=== PATIENT | female | born 1995 | race Caucasian/White ===

== ENCOUNTER 2021-07-31 04:53 | Emergency (ER) | payer OTHER ==
--- OUTSIDE RECORDS SUMMARY | 2021-07-31 04:55 | XMS REPORT | Continuity of Care Document ---
:1995 Author Organization [facility] t Address [address] [place] [address] Care Team Providers Name Role Phone Esteban Hopson Attending Clinician Unavailable DARNELL Attending Clinician Unavailable Pedro Pedraza Attending Clinician Unavailable Physician, Primary or Family Admitting Clinician UnavailPedro Dang Admitting Clinician Unavailable Payers Payer Name Policy Type Policy Number Effective Date Expiration Date S ource Problems This patient has no known problems. Allergies, Adverse Reactions, Alerts Allergy Allergy Status Severity Reaction(s) Onset Inactive Treating Comm ents Source Name Type Date Date Clinician No Known DA Active U [facility] Allergie 06-25 00:00: [address] Medications This patient has no known medications. Procedures This patient has no known procedures. Encounters Start End Encounter Admission Attending Care Care Encounter Source Date/Time Date/Time Type Type Clinicians Facility Department ID 2021-07-29 2021-07-30 Emergency EM Mark Anthony [facility] [id number] [facility] 21:27:00 00:49:00 , Héctor [id number] [facility] 2021-07-29 2021-07-30 Emergency EM Mark Anthony [facility] [id number] [facility] 21:27:00 00:49:00 , Héctor 37 [facility] 2021-07-21 2021-07-21 Emergency E MICHAEL PATRICK [facility] [address] 06:42:00 10:16:00 [place] 2021-06-25 2021-06-26 Inpatient [facility] [id number] [facility] 09:48:00 16:57:[id number] [facility] 2021-06-25 2021-06-26 Inpatient [facility] [id number] [facility] 09:48:00 16:57:[address] [facility] Results Test Description Test Time Test Comments Results Result Comments Source COMPREHENSIVE METABOLIC PANEL 2021-07-29 22:24:00 Test Item Value Reference Range Interpretation Comme nts SODIUM (test code = NA) 142 MMOL/L 137-145 N POTASSIUM (test code = K) 4.0 MMOL/L 3.5-5.1 N CHLORIDE (test code = CL) 100 MMOL/L 98-107 N CARBON DIOXIDE (test code 23 MMOL/L 22-30 N = CO2) ANION GAP (test code = 23 MMOL/L 14-24 N GAP) GLUCOSE (test code = GLU) 112 MG/DL 74-106 H BLOOD UREA NITROGEN (test 13 MG/DL 7-17 N code = BUN) GLOMERULAR FILTRATION RATE > 60 R eporting units: ml/min/1.73 m2 (test code = GFR) (Modified MDRD Formula)Reference Range: > or = 6 0 ml/min/1.73 m2 CREATININE (test code = 1.00 MG/DL 0.52-1.04 N CREAT) TOTAL PROTEIN (test code = 10.0 G/DL 6.3-8.2 H [facility] has made PROT) us aware of new information regarding the potential i nterference ofEltrombopag (a bone marrow stimulant used to treatthrombocyt onmenia and aplastic anemia) with sp ecific assayson the Vitros 5600 of which Total Protein is one of those assays performed in our lab.Interfe [facility]ce [facility] determined thatEltrombopag does interfere with Vitros Total Pr otein asfollowsEltrom bopag Interference for Vitros Prod uct Total Protein:======= Eltrombopag Max Observed A vg. BiasConcentration Concentration Concentration== = 2.5 mg/dl 6.0 g/dl +0.41 +0.34 3.5 mg/dl 6.0 g/dl +0.50 +0.45 5 mg/d l 6.0 g/dl +0.73 +0.65 2.5 mg/dl 8.0 g/dl +0.44 +0.41 3.5 mg/ dl 8.0 g/dl +0.55 +0.52 5 mg/dl 8.0 g/dl +0.86 +0.77 ALBUMIN (test code = ALB) 5.4 G/DL 3.5-5.0 H CALCIUM (test code = CA) 10.7 MG/DL 8.4-10.2 H BILIRUBIN TOTAL (test code 1.0 MG/DL 0.2-1.3 N E ltrombopag Interference for Vitros = BILT) Product TBil, BuBc: Assay Eltrombopag Analyte/ Max Observed Avg. Bias Concentration Concentration Concentration== =TBil 7mg/dl TBil/ 1.2mg/dl +0.23mg.dl + 0.20mg/dlBuBc 3.5mg/dl B u/0.8mg/dl +0.25mg/dl +0 .24mg/dlBuBc 7 mg/dl Bu/ 14.2mg/dl +0.38mg/dl +0 .25mg/dlBuBc 5mg/dl Bc/0mg/d l +0.25mg/dl +0.15mg/dlBuBc 3.5mg/dl Bc/2.8mg/dl +0.25mg/dl +0.23mg/dl SGOT/AST (test code = AST) 26 UNITS/L 14-36 N SGPT/ALT (test code = ALT) 36 UNITS/L 0-34 H ALKALINE PHOSPHATASE (test 97 UNITS/L 38-126 N code = ALKP) [id number] 22:24:00 Test Item Value Reference Range Interpretation Comments LIPASE (test code = LIP) 15 UNITS/L 23-300 L URINALYSIS [id number] 22:15:00 Test Item Value Reference Range Interpretation Comments UA COLOR (test code = YELLOW YELLOW COLU) UA APPEARANCE (test code CLEAR CLEAR = APPU) UA GLUCOSE DIPSTICK (test NORMAL MG/DL NORMAL code = DGLUU) UA BILIRUBIN DIPSTICK NEGATIVE MG/DL NEGATIVE (test code = BILU) UA KETONE DIPSTICK (test 150 MG/DL NEGATIVE A code = KETU) UA SPECIFIC GRAVITY (test 1.030 1.003-1.030 N code = SGU) UA BLOOD DIPSTICK (test 10 Sonido/mm3 NEGATIVE A code = KRISTIAN) UA PH DIPSTICK (test code 6.0 5.0-9.0 N = LIZBET) UA PROTEIN DIPSTICK (test 30 MG/DL NEGATIVE A code = PROU) UA UROBILINIOGEN DIPSTICK 1 MG/DL NORMAL A (test code = URO) UA NITRITE DIPSTICK (test NEGATIVE NEGATIVE code = GYOO) UA LEUKOCYTE ESTERASE NEGATIVE /mm3 NEGATIVE DIPSTICK (test code = LEUU) UA CULTURE NEEDED? (test NO, WBC<10 Criteria Culture Chk code = UACULT) UA [id number] 22:15:00 Test Item Value Reference Range Interpretation Comments UA RBC (test code = RBCU) 0-3 RBC/HPF 0-3 UA WBC (test code = XWBCU) 0-3 WBC/HPF 0-5 UA EPITHELIAL CELLS (test code MANY EPI/HPF FEW = EPIU) UA BACTERIA (test code = MANY NONE A XBACU) UA MUCUS (test code = MUCU) MODERATE #/LPF NONE A UR HCG [id number] 22:15:00 Test Item Value Reference Range Interpretation Comments UR HCG QUAL (test code = HCGQLU) NEGATIVE NEGATIVE CBC W/AUTO [id number] 21:57:00 Test Item Value Reference Range Interpretation Comments WHITE BLOOD CELL (test code = 11.3 K/MM3 3.8-9.8 H WBC) RED BLOOD CELL (test code = 5.43 M/MM3 3.58-4.97 H RBC) HEMOGLOBIN (test code = HGB) 16.7 G/DL 11.2-14.9 H HEMATOCRIT (test code = HCT) 50.5 % 33.2-43.5 H MEAN CELL VOLUME (test code = 93 fL 80.7-99.1 N MCV) MEAN CELL HGB (test code = MCH) 30.8 pg 27.0-34.1 N MEAN CELL HGB CONCETRATION 33.1 % 32.2-35.7 N (test code = MCHC) RED CELL DISTRIBUTION WIDTH 13.2 % 12.1-15.2 N (test code = RDW) PLATELET COUNT (test code = 317 K/MM3 129-368 N PLT) MEAN PLATELET VOLUME (test code 10.7 fl 7.4-10.4 H = MPV) NEUTROPHIL % (test code = NT%) 88.0 % 43-75 H IMMATURE GRANULOCYTE % (test 0.4 % 0.0-2.0 N code = IG%) LYMPHOCYTE % (test code = LY%) 6.9 % 14-44 L MONOCYTE % (test code = MO%) 4.4 % 4-13 N EOSINOPHIL % (test code = EO%) 0.0 % 0-6 N BASOPHIL % (test code = BA%) 0.3 % 0-2 N NUCLEATED RBC % (test code = 0.0 % 0-1.0 N NRBC%) NEUTROPHIL # (test code = NT#) 9.92 K/mm3 2.0-7.6 H IMMATURE GRANULOCYTE # (test 0.04 x10 3/uL 0-0.03 H code = IG#) LYMPHOCYTE # (test code = LY#) 0.78 K/mm3 1.0-3.8 L MONOCYTE # (test code = MO#) 0.50 K/mm3 0.1-0.8 N EOSINOPHIL # (test code = EO#) 0.00 K/mm3 0.0-0.2 N BASOPHIL # (test code = BA#) 0.03 K/mm3 0.0-0.2 N NUCLEATED RBC # (test code = 0.00 K/mm3 0.0-0.1 N NRBC#) BASIC METABOLIC [id number] 06:23:00 Test Item Value Reference Range Interpretation Comments SODIUM (test code = 137 MMOL/L 137-145 N NA) POTASSIUM (test code = 3.8 MMOL/L 3.5-5.1 N K) CHLORIDE (test code = 110 MMOL/L 98-107 H CL) CARBON DIOXIDE (test 23 MMOL/L 22-30 N code = CO2) ANION GAP (test code = 8 MMOL/L 14-24 L GAP) GLUCOSE (test code = 84 MG/DL 74-106 GLU) BLOOD UREA NITROGEN 16 MG/DL 7-17 N (test code = BUN) GLOMERULAR FILTRATION > 60 Report ing units: RATE (test code = GFR) ml/mi n/1.73 m2 (Modified MDRD Formula)Referen ce Range: > or = 6 0 ml/min/1.73 m2 CREATININE (test code 0.80 MG/DL 0.52-1.04 N = CREAT) CALCIUM (test code = 8.2 MG/DL 8.4-10.2 L CA) [id number] 16:04:00 Test Item Value Reference Range Interpretation Comments ACETAMINOPHEN (test code = < 10.0 MCG/ML 10-30 L ACET) DRUGS OF ABUSE SCREEN [id number] 14:46:00 Test Item Value Reference Range Interpretation Comments UR COCAINE (test code = NEGATIVE NEGATIVE Cut off Value: 300 COCAU) ng/mL UR CANNABINOIDS (THC) POSITIVE NEGATIVE A Cut of f Value: 50 (test code = CANU) ng/mL UR AMPHETAMINE (test NEGATIVE NEGATIVE Cut off Value: 1000 code = AMPHU) ng/mL UR BARBITURATE QUAL NEGATIVE NEGATIVE Cut off Value: 200 (test code = BARBQLU) ng/mL UR BENZODIAZEPINE (test NEGATIVE NEGATIVE Cut off Value: 200 code = BENZU) ng/mL UR OPIATES QUAL (test POSITIVE NEGATIVE A This i s a Screening code = OPIAQLU) test and the Results are to be used for medical purpose s only (No confirmatio n for Positive result s)Cut off Value: 300 ng/mL UR PHENCYCLIDINE (PCP) NEGATIVE NEGATIVE Cut o ff Value: 25 (test code = PHENCU) ng/mL URINALYSIS [id number] 13:58:00 Test Item Value Reference Range Interpretation Comments UA COLOR (test code = YELLOW YELLOW COLU) UA APPEARANCE (test code CLEAR CLEAR = APPU) UA GLUCOSE DIPSTICK (test NORMAL MG/DL NORMAL code = DGLUU) UA BILIRUBIN DIPSTICK NEGATIVE MG/DL NEGATIVE (test code = BILU) UA KETONE DIPSTICK (test 150 MG/DL NEGATIVE A code = KETU) UA SPECIFIC GRAVITY (test 1.020 1.003-1.030 N code = SGU) UA BLOOD DIPSTICK (test NEGATIVE Sonido/mm3 NEGATIVE code = KRISTIAN) UA PH DIPSTICK (test code 6.0 5.0-9.0 N = LIZBET) UA PROTEIN DIPSTICK (test 30 MG/DL NEGATIVE A code = PROU) UA UROBILINIOGEN DIPSTICK 1 MG/DL NORMAL A (test code = URO) UA NITRITE DIPSTICK (test NEGATIVE NEGATIVE code = GOYO) UA LEUKOCYTE ESTERASE 100 /mm3 NEGATIVE A DIPSTICK (test code = LEUU) UA CULTURE NEEDED? (test NO, WBC<10 Criteria Culture Chk code = UACULT) SOURCE OF URINE: CLEAN CATCHUA [id number] 13:58:00 Test Item Value Reference Range Interpretation Comments UA RBC (test code = RBCU) 0-3 RBC/HPF 0-3 UA WBC (test code = XWBCU) 3-5 WBC/HPF 0-5 UA EPITHELIAL CELLS (test MODERATE EPI/HPF FEW A code = EPIU) UA BACTERIA (test code = FEW NONE XBACU) SOURCE OF URINE: CLEAN CATCHUR HCG [id number] 13:58:00 Test Item Value Reference Range Interpretation Comments UR HCG QUAL (test code = HCGQLU) NEGATIVE NEGATIVE SOURCE OF URINE: CLEAN CATCH- CT ABD PELVIS [id number] 12:14:00 [facility] 1995 Sex: F Patient Name: DONNA NICOLE Unit No: [id number] EXAMS: CPT CODE: [id number] CT ABD PELVIS W/CONT 17263 CT Abdomen and Pelvis with contrast. Location: S17 Clinical indication: 25-year-old with abdominal pain Comparison: None Technique: Computed axial images were obtained from the diaphragms through the pubic symphysis following IV administration of contrast. Up to date CT equipment and radiation dose reductiontechnique were utilized. Findings: Abdomen: There is mild atelectasis within the lung bases. The liver, gallbladder, spleen, adrenal glands, pancreas, kidneys,and bowel are without acute abnormality. Pelvis: Normal appendix. The uterus is present. Urinary bladder is partially distended. No free pelvic fluid. No acute osseous abnormality of the abdomen or pelvis. Impression: No abnormality toaccount for patient's symptoms. at 1214 Reported and signed by: Corby Edge M.D. CC: Hank Story DO Technologist: Dario Morales, RT(R); Amand CTDI: DLP: Trnscrpt: 06/25/2021 (1214) [id number] [facility] NAME: DONNA NICOLE [id number] PHYS: [place] [address] : 1995 AGE: 25 SEX: F LOC: ZAdamCHI PHONE #: [phone] EXAM DATE: 06/25/2021 STATUS: EVARISTO ER FAX #: [phone] RAD #: D/C DT PAGE 1 Signed Report Patient Name: DONNA NICOLE UnitNo: [id number] EXAMS: CPT CODE: [id number] CT ABD PELVIS W/CONT [id number] <Continued> Orig Print D/T: S: 06/25/2021 (1238) [facility] NAME: DONNA NICOLE [id number] [address]: [place] [address] : 1995 AGE: 25 SEX: F LOC: ABDIEL PHONE #: [phone] EXAM DATE: 06/25/2021 STATUS: REG ER FAX #: [phone] RAD #: D/C DT PAGE 2 Signed ReportHCG SERUM [id number] 11:16:00 Test Item Value Reference Range Interpretation Comments HCG SERUM QUAL (test code = HCGQL) NEGATIVE NEGATIVE COMPREHENSIVE METABOLIC [id number] 10:29:00 Test Item Value Reference Range Interpretation Comments SODIUM (test code 139 MMOL/L 137-145 N = NA) POTASSIUM (test 3.8 MMOL/L 3.5-5.1 N code = K) CHLORIDE (test 102 MMOL/L 98-107 N code = CL) CARBON DIOXIDE 27 MMOL/L 22-30 N (test code = CO2) ANION GAP (test 14 MMOL/L 14-24 N code = GAP) GLUCOSE (test 113 MG/DL 74-106 H code = GLU) BLOOD UREA 19 MG/DL 7-17 H NITROGEN (test code = BUN) GLOMERULAR > 60 Reporting units : FILTRATION RATE ml/min/1.73 m2 (Modified (test code = GFR) MDRD Formu la)Reference Range: > or = 6 0 ml/min/1.73 m2 CREATININE (test 1.00 MG/DL 0.52-1.04 N code = CREAT) TOTAL PROTEIN 8.6 G/DL 6.3-8.2 H [facility] (test code = has made us bhaskar re of PROT) newinformation regarding the potential i nterference ofEltrombopag (a bone marrow stimulan t used to treatthrombocyt onmenia and aplastic anemia ) with specific assays on the Vitros 5600 of which Total Protein is one of thoseassays per formed in our lab.Interfe rence testing perform ed at [facility] determined that Eltrombopag does interfere with Vitros Total Protein asfollowsEltrom bopag Interference fo r Vitros Product Total Protein:======= Eltrombopag Max Observed A vg. BiasConcentrati on Concentration Concentration== ==== 2.5 mg/dl 6.0 g/dl +0.41 +0.34 3.5 mg/dl 6.0 g/dl +0.50 +0.45 5 mg/dl 6.0 g/dl +0.73 +0.65 2.5 mg/dl 8.0 g/dl +0.44 +0.41 3.5 mg/dl 8.0 g/dl +0.55 +0.52 5 mg/dl 8.0 g/dl +0.86 +0.77 ALBUMIN (test 4.8 G/DL 3.5-5.0 N code = ALB) CALCIUM (test 9.9 MG/DL 8.4-10.2 N code = CA) BILIRUBIN TOTAL 0.8 MG/DL 0.2-1.3 N Eltrombopag Interference (test code = for Vitros Prod uct TBil, BILT) BuBc: Assa y Eltrombopag Analyte/ Max Observed Avg. Bias Concentrati on Concentration Concentration== ====TBil 7mg/dl T Reyes/ 1.2mg/dl +0.23 mg.dl +0.20mg/dlBuBc 3.5mg/dl Bu/0.8mg/dl +0.25mg/dl +0 .24mg/dlBuBc 7 mg/dl Bu/14.2mg/dl +0.38mg/dl +0.25mg/dlBuBc 5mg/dl Bc/0mg/dl +0.25mg/dl +0 .15mg/dlBuBc 3.5mg/dl Bc/2.8mg/dl +0.25mg/dl +0.23mg/dl SGOT/AST (test 24 UNITS/L 14-36 N code = AST) SGPT/ALT (test 20 UNITS/L 0-34 N code = ALT) ALKALINE 73 UNITS/L 38-126 N PHOSPHATASE (test code = ALKP) [id number] 10:29:00 Test Item Value Reference Range Interpretation Comments LIPASE (test code = LIP) 20 UNITS/L 23-300 L CBC W/AUTO [id number] 10:15:00 Test Item Value Reference Range Interpretation Comments WHITE BLOOD CELL (test code = 10.4 K/MM3 3.8-9.8 H WBC) RED BLOOD CELL (test code = 4.79 M/MM3 3.58-4.97 N RBC) HEMOGLOBIN (test code = HGB) 14.9 G/DL 11.2-14.9 N HEMATOCRIT (test code = HCT) 44.7 % 33.2-43.5 H MEAN CELL VOLUME (test code = 93 fL 80.7-99.1 N MCV) MEAN CELL HGB (test code = MCH) 31.1 pg 27.0-34.1 N MEAN CELL HGB CONCETRATION 33.3 % 32.2-35.7 N (test code = MCHC) RED CELL DISTRIBUTION WIDTH 13.1 % 12.1-15.2 N (test code = RDW) PLATELET COUNT (test code = 262 K/MM3 129-368 N PLT) MEAN PLATELET VOLUME (test code 10.9 fl 7.4-10.4 H = MPV) NEUTROPHIL % (test code = NT%) 86.7 % 43-75 H IMMATURE GRANULOCYTE % (test 0.3 % 0.0-2.0 N code = IG%) LYMPHOCYTE % (test code = LY%) 7.8 % 14-44 L MONOCYTE % (test code = MO%) 4.9 % 4-13 N EOSINOPHIL % (test code = EO%) 0.0 % 0-6 N BASOPHIL % (test code = BA%) 0.3 % 0-2 N NUCLEATED RBC % (test code = 0.0 % 0-1.0 N NRBC%) NEUTROPHIL # (test code = NT#) 9.03 K/mm3 2.0-7.6 H IMMATURE GRANULOCYTE # (test 0.03 x10 3/uL 0-0.03 N code = IG#) LYMPHOCYTE # (test code = LY#) 0.81 K/mm3 1.0-3.8 L MONOCYTE # (test code = MO#) 0.51 K/mm3 0.1-0.8 N EOSINOPHIL # (test code = EO#) 0.00 K/mm3 0.0-0.2 N BASOPHIL # (test code = BA#) 0.03 K/mm3 0.0-0.2 N NUCLEATED RBC # (test code = 0.00 K/mm3 0.0-0.1 N NRBC#)
[2021-07-31] MEDS ORDERED: PROMETHAZINE INJ 25 MG/ML AMP ONE (06:48)
[2021-07-31] MEDS ORDERED: MORPHINE 4 MG/ML SYR ONE (06:49)
[2021-07-31 06:52] LABS: Urine Blood Negative (Negative); Urine Glucose Negative (Negative); Urine Protein 2+ (Negative); Urine Specific Gravity >=1.030 (1.005-1.030); Urine pH 6.5 (5.0-7.0)
[2021-07-31 07:13] LABS: Albumin 4.2 g/dL (3.4-5.0); Bilirubin Direct 0.2 mg/dL (0-0.2); Bilirubin Total 0.8 mg/dL (0.2-1.0); Protein, Total 8.2 g/dL (6.4-8.2)
[2021-07-31] MEDS ORDERED: NA CHLORIDE 0.9% 1,000 ML ONE ×2 (07:13→08:18)
[2021-07-31 07:16] LABS: Potassium 3.8 mmol/L (3.5-5.1)
[2021-07-31 07:31] LABS: Urine Bacteria 20-50 /HPF (<20); Urine Mucus 1+ /HPF (NONE SEEN); Urine RBC <5 /HPF (NONE SEEN)
--- NOTE | 2021-07-31 08:27 | RAD REPORT ---
EXAM DESCRIPTION: CT - Abdomen Pelvis W Contrast - 07/31/2021 8:03 am CLINICAL HISTORY: Abdominal pain COMPARISON: none. TECHNIQUE: Computed axial tomography of the abdomen pelvis was obtained. 100 cc Isovue-300 was admin istered intravenously. Oral contrast was not requested which limits evaluation of bowel. All CT scans are performed using dose optimization technique as appropriate and may include automated exposure control or mA/KV adjustment according to patient size. FINDINGS: Fatty liver. 3.5 centimeter low to intermediate density lesion left lobe of the liver. Spleen, pancreas,, adrenals and kidneys unremarkable There is no evidence of diverticulitis. Normal appendix Mild enlargement left ovary IMPRESSION: 3.5 centimeter hepatic lesion nonspecific but probably benign. Follow-up hepatic ultraso und 3 months recommended. Mild enlargement of the left ovary. This also can be monitored on a 3 month ultrasound.
[2021-07-31] MEDS ORDERED: CEFTRIAXONE 1000 MG/VIAL ONE (08:55)
[2021-07-31] MEDS ORDERED: ONDANSETRON 4 MG/2 ML VIAL ONE (08:55)
[2021-07-31] MEDS ORDERED: DICYCLOMINE HCL 20 MG/2 ML AMP IM ONE (08:56)
[2021-07-31] MEDS ORDERED: NA CHLORIDE 0.9% 50 ML ONE (09:00)
[2021-07-31 09:13] LABS: SARS-COV-2 RT PCR NEGATIVE (NEGATIVE)
[2021-07-31 09:33] LABS: Absolute Lymphocytes (CBC) 0.8 K/uL (0.7-4.9); Hematocrit 40.5 % (36.0-45.0); Lymphocytes % 9.7 % (15.3-44.8); MPV 9.3 fL (7.6-11.3); RBC Red Blood Cell Count 4.36 M/uL (3.86-4.86)
[2021-07-31 09:43] LABS: Urine Specific Gravity/Preg >1.030 (1.005-1.030)
[2021-07-31] MEDS ORDERED: LORazepam 2 MG/ML VIAL ONE (10:02)
[2021-07-31] MEDS ORDERED: METOCLOPRAMIDE 10 MG/2mL INJ ONE (12:03)
[2021-07-31] MEDS ORDERED: DIPHENHYDRAMINE 50 MG/ML VIAL ONE (12:04)
--- NOTE | 2021-07-31 13:40 | EDPHYS ---
Physician Documentation [facility] Name: Alpa Antonio Age: 25 yrs Sex: Female : 1995 Arrival Date: 07/31/2021 Time: 04:57 Bed 20 Private MD: ED Physician Parker Dunham HPI: 07/31 07:07 This 25 yrs old Female presents to ER via Ambulatory with complaints of Abdominal Pain, pm1 Nausea/Vomiting. 07:07 The patient presents with abdominal pain in the upper abdomen. pm1 07:07 Onset: The symptoms/episode began/occurred 3 day(s) ago. The symptoms do not radiate. pm1 Associated signs and symptoms: Pertinent positives: nausea and vomiting, Pertinent negatives: chest pain, constipation, diarrhea, shortness of breath. The symptoms are described as achy. Modifying factors: The symptoms are alleviated by nothing, the symptoms are aggravated by food, work stress. Severity of pain: in the emergency department the pain is unchanged. The patient has experienced similar episodes in the past, multiple times, and the symptoms today are exactly the same, to previous Abdominal migraines. The patient has not recently seen a physician, Patient's abdominal migraines used to be an issue by a neurologist who no longer practices. Patient reports she was unable to get continuity of care to another neurologist. Therefore she does not have any medications that typically manage it such as Topamax Xanax, Ativan and possibly sumatriptan. 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 - Social history:: Smoking status: Patient denies any tobacco usage or history of. ROS: 07:07 Constitutional: Negative for fever, chills, and weight loss, Cardiovascular: Negative pm1 for chest pain, palpitations, and edema, Respiratory: Negative for shortness of breath, cough, wheezing, and pleuritic chest pain. 07:07 Back: Negative for injury and pain, MS/Extremity: Negative for injury and deformity, Skin: Negative for injury, rash, and discoloration, Neuro: Negative for headache, weakness, numbness, tingling, and seizure. 07:07 Abdomen/GI: Positive for abdominal pain, nausea and vomiting, Negative for diarrhea, constipation. 07:07 All other systems are negative. Exam: 07:07 Constitutional: This is a well developed, well nourished patient who is awake, alert, pm1 and in no acute distress. Head/Face: Normocephalic, atraumatic. 07:07 Back: No spinal tenderness. No costovertebral tenderness. Full range of motion. Skin: Warm, dry with normal turgor. Normal color with no rashes, no lesions, and no evidence of cellulitis. MS/ Extremity: Pulses equal, no cyanosis. Neurovascular intact. Full, normal range of motion. 07:07 Cardiovascular: Exam negative for acute changes, Rate: normal, Rhythm: regular, Pulses: no pulse deficits are appreciated, Heart sounds: normal, normal S1and S2. 07:07 Respiratory: Exam negative for acute changes, respiratory distress, shortness of breath, Breath sounds: are clear throughout. 07:07 Abdomen/GI: Inspection: abdomen appears normal, Palpation: soft, in all quadrants, mild abdominal tenderness, in the right upper quadrant and left upper quadrant. 07:07 Neuro: Exam negative for acute changes, Orientation: is normal, Mentation: is normal, Motor: is normal, moves all fours. Vital Signs: 05:14 BP 130 / 103; Pulse 83; Resp 18 S; Temp 98.8(TE); Pulse Ox 97% on R/A; Weight 86.18 kg as6 (R); Height 5 ft. 9 in. (175.26 cm) (R); Pain 8/10; 07:13 BP 134 / 73 LA Supine (auto/reg); Pulse 70 MON; Resp 17 S; Temp 98.9(O); Pulse Ox 99% ; sv1 07:39 Pain 0/10; ag7 09:00 BP 137 / 90 LA Supine (man/reg); Pulse 75 MON; Pulse Ox 100% on R/A; Pain 0/10; ag7 09:00 BP 142 / 96 LA Supine (man/reg); Pulse 86 MON; Pulse Ox 98% on R/A; Pain 7/10; ag7 10:00 BP 120 / 83 LA Supine (man/reg); Pulse 77 MON; Resp 16 S; Pulse Ox 97% ; Pain 7/10; ag7 11:01 BP 116 / 66; Pulse 64; Resp 16 S; Pulse Ox 95% ; Pain 0/10; ag7 12:00 BP 139 / 83 Supine (man/reg); Pulse 75 LA; Resp 16 S; Pulse Ox 97% on R/A; Pain 0/10; ag7 13:00 BP 120 / 74 LA Supine (man/reg); Pulse 67 MON; Resp 16; Pulse Ox 94% on R/A; Pain 0/10; ag7 14:03 BP 145 / 90; Pulse 87; Pulse Ox 96% on R/A; Pain 0/10; ag7 05:14 Body Mass Index 28.06 (86.18 kg, 175.26 cm) as6 MDM: 06:35 Patient medically screened. pm1 13:38 Data reviewed: vital signs. Data interpreted: Pulse oximetry: on room air is 98 %. pm1 Interpretation: normal. Counseling: I had a detailed discussion with the patient and/or guardian regarding: the historical points, exam findings, and any diagnostic results supporting the discharge/admit diagnosis, lab results, radiology results, the need for outpatient follow up, a account adjuster, a neurologist, an OB/Gyne specialist, to return to the emergency department if symptoms worsen or persist or if there are any questions or concerns that arise at home. 13:38 ED course: Patient nausea and vomiting managed treating possibly anxiety and her pm1 abdominal migraine with headache migraine cocktail. Also treated with anxiety medication. Will discharge patient home with anxiety medications. 07/31 05:50 Order name: Basic Metabolic Panel [facility] 07/31 05:50 Order name: CBC with Diff; Complete Time: 09:40 [facility] 07/31 05:50 Order name: Hepatic Function; Complete Time: 07:37 [facility] 07/31 05:50 Order name: Lipase; Complete Time: 07:37 [facility] 07/31 05:50 Order name: Urine Microscopic Only; Complete Time: 07:33 [facility] 07/31 05:51 Order name: Basic Metabolic Panel; Complete Time: 07:37 EDMS 07/31 06:37 Order name: CT Abd/Pelvis - IV Contrast Only; Complete Time: 08:28 pm1 07/31 06:51 Order name: Urine Dipstick-Ancillary; Complete Time: 07:07 EDMS 07/31 06:57 Order name: Urine --Ancillary (enter results); Complete Time: 09:59 oe 07/31 07:29 Order name: COVID-19/FLU A+B (Document "Date of Onset" if Symptomatic) pm1 07/31 07:29 Order name: COVID-19/FLU A+B; Complete Time: 09:40 EDMS 07/31 07:33 Order name: Urine Culture EDMS 07/31 05:50 Order name: IV Saline Lock; Complete Time: 06:42 7 07/31 05:50 Order name: Labs collected and sent; Complete Time: 06:42 7 07/31 05:50 Order name: Urine Dipstick-Ancillary (obtain specimen); Complete Time: 07:02 7 07/31 05:50 Order name: Urine Test (obtain specimen); Complete Time: 07:02 mh7 Administered Medications: 07:07 Drug: Phenergan (promethazine) 25 mg Route: IVP; Site: right antecubital; sv1 07:07 Drug: morphine 4 mg Route: IVP; Site: right antecubital; sv1 07:39 Follow up: Pain 0/10 Adult; Response: No adverse reaction; Pain is decreased ag7 07:37 Drug: NS 0.9% 1000 ml Route: IV; Rate: 1000 ml; Site: right antecubital; ag7 08:33 Follow up: Response: No adverse reaction; IV Status: Completed infusion; IV Intake: ag7 1000ml 08:33 Drug: NS 0.9% 1000 ml Route: IV; Rate: 1000 ml; Site: right antecubital; ag7 09:45 Follow up: Response: Adverse reaction, Physician notified; IV Status: Completed ag7 infusion; IV Intake: 1000ml 09:08 Drug: Bentyl (dicyclomine) 20 mg Route: IM; Site: left deltoid; ag7 09:47 Follow up: Response: No adverse reaction ag7 09:08 Drug: Zofran (Ondansetron) 4 mg Route: IVP; Site: right antecubital; ag7 09:46 Follow up: Response: No adverse reaction; Nausea is decreased ag7 09:09 Drug: Rocephin (cefTRIAXone) 1 grams Route: IV; Rate: calculated rate; Site: right ag7 antecubital; 09:46 Follow up: Response: No adverse reaction; IV Status: Completed infusion; IV Intake: [id number] 10:11 Drug: Ativan (LORazepam) 0.5 mg Route: IVP; Site: right antecubital; ag7 10:41 Follow up: Response: No adverse reaction; Nausea is decreased ag7 12:14 Drug: Reglan (metoCLOPramide) 10 mg Route: IVP; Site: right antecubital; ag7 13:03 Follow up: Response: No adverse reaction; Nausea is decreased ag7 12:15 Drug: Benadryl (diphenhydrAMINE) 12.5 mg Route: IVP; Site: right antecubital; ag7 13:04 Follow up: Response: No adverse reaction ag7 Disposition: 08/01 01:07 Co-signature as Attending Physician, Parker Dunham MD. mh7 Disposition Summary: 07/31/21 13:39 Discharge Ordered Location: Home pm1 Problem: new pm1 Symptoms: have improved pm1 Condition: Stable pm1 Diagnosis - Vomiting pm1 - Abdominal pain, unspecified pm1 Followup: pm1 - With: Emergency Department - When: As needed - Reason: Worsening of condition Followup: pm1 - With: Private Physician - When: 2 - 3 days - Reason: Recheck today's complaints, Continuance of care, Re-evaluation by your physician Discharge Instructions: - Discharge Summary Sheet pm1 - Abdominal Pain, Adult pm1 - Vomiting, Adult pm1 Forms: - Medication Reconciliation Form pm1 - Thank You Letter pm1 - Antibiotic Education pm1 - Prescription Opioid Use pm1 Prescriptions: - Ativan 0.5 mg Oral Tablet - take 1 tablet by ORAL route every 8 hours As needed; 6 tablet; Refills: 0, pm1 Product Selection Permitted - Macrobid 100 mg Oral Capsule - take 1 capsule by ORAL route every 12 hours for 10 days; 20 capsule; Refills: pm1 0, Product Selection Permitted Signatures: Dispatcher [employer] EDHéctor Hodges NP NEONATAL SURGEON pm1 Parker Dunham MD MD mh7 Brayan Savage RN RN as6 Cisco Romano RN RN sv1 Una Zamora RN RN ag7 Corrections: (The following items were deleted from the chart) 07/31 11:55 11:24 Dr Seth Consult ordered. EDMS EDMS
--- NOTE | 2021-07-31 13:40 | ER ---
Nurse's Notes [facility] Name: Alpa Antonio Age: 25 yrs Sex: Female : 1995 Arrival Date: 07/31/2021 Time: 04:57 Bed 20 Private MD: Diagnosis: Vomiting;Abdominal pain, unspecified Presentation: 07/31 05:14 Chief complaint: Patient states: "I've been vomiting every 20 minutes since Friday". as6 Coronavirus screen: At this time, the client does not indicate any symptoms associated with coronavirus-19. Ebola Screen: No symptoms or risks identified at this time. Initial Sepsis Screen: Does the patient meet any 2 criteria? No. Patient's initial sepsis screen is negative. Does the patient have a suspected source of infection? No. Patient's initial sepsis screen is negative. Risk Assessment: Do you want to hurt yourself or someone else? Patient reports no desire to harm self or others. Onset of symptoms was July 28, 2021. 05:14 Method Of Arrival: Ambulatory as6 05:14 Acuity: JUAN LUIS 3 as6 Triage Assessment: 05:16 General: Appears uncomfortable, Behavior is calm, cooperative. Pain: Complains of pain as6 in abdomen. GI: Reports nausea, vomiting. 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 - Social history:: Smoking status: Patient denies any tobacco usage or history of. Screenin:13 Abuse screen: Denies threats or abuse. Nutritional screening: No deficits noted. Fall sv1 Risk None identified. 07:17 Tuberculosis screening: No symptoms or risk factors identified. Never had TB. sv1 Assessment: 07:17 GI: Abdomen is tender to palpation. sv1 07:30 Reassessment: No changes from previously documented assessment. Patient and/or family ag7 updated on plan of care and expected duration. Pain level reassessed. Patient is alert, oriented x 3, equal unlabored respirations, skin warm/dry/pink. Patient denies pain at this time. Patient states feeling better. Patient states symptoms have improved. 08:30 Reassessment: No changes from previously documented assessment. Patient and/or family ag7 updated on plan of care and expected duration. Pain level reassessed. Patient is alert, oriented x 3, equal unlabored respirations, skin warm/dry/pink. c/o pain 7/10 abd, acute, constant. 09:30 Reassessment: No changes from previously documented assessment. Patient and/or family ag7 updated on plan of care and expected duration. Pain level reassessed. Patient is alert, oriented x 3, equal unlabored respirations, skin warm/dry/pink. 10:30 Reassessment: No changes from previously documented assessment. Patient and/or family ag7 updated on plan of care and expected duration. Pain level reassessed. Patient is alert, oriented x 3, equal unlabored respirations, skin warm/dry/pink. c/o nausea, emesis noted x 1 Patient denies pain at this time. 11:34 Reassessment: Patient and/or family updated on plan of care and expected duration. Pain ag7 level reassessed. Patient is alert, oriented x 3, equal unlabored respirations, skin warm/dry/pink. Patient denies pain at this time. Patient states feeling better. Patient states symptoms have improved. 12:30 Reassessment: Patient and/or family updated on plan of care and expected duration. Pain ag7 level reassessed. Patient is alert, oriented x 3, equal unlabored respirations, skin warm/dry/pink. Patient continue to be nausea. s/p fluid challenge no emesis noted, patient c/o nausea. 13:12 Reassessment: Patient and/or family updated on plan of care and expected duration. Pain ag7 level reassessed. Patient is alert, oriented x 3, equal unlabored respirations, skin warm/dry/pink. Patient verbalize relief from nausea and vomiting Patient denies pain at this time. Patient states feeling better. Patient states symptoms have improved. 14:06 Reassessment: Patient and/or family updated on plan of care and expected duration. Pain ag7 level reassessed. Patient is alert, oriented x 3, equal unlabored respirations, skin warm/dry/pink. Patient denies pain at this time. Patient states feeling better. Patient states symptoms have improved. Vital Signs: 05:14 BP 130 / 103; Pulse 83; Resp 18 S; Temp 98.8(TE); Pulse Ox 97% on R/A; Weight 86.18 kg as6 (R); Height 5 ft. 9 in. (175.26 cm) (R); Pain 8/10; 07:13 BP 134 / 73 LA Supine (auto/reg); Pulse 70 MON; Resp 17 S; Temp 98.9(O); Pulse Ox 99% ; sv1 07:39 Pain 0/10; ag7 09:00 BP 137 / 90 LA Supine (man/reg); Pulse 75 MON; Pulse Ox 100% on R/A; Pain 0/10; ag7 09:00 BP 142 / 96 LA Supine (man/reg); Pulse 86 MON; Pulse Ox 98% on R/A; Pain 7/10; ag7 10:00 BP 120 / 83 LA Supine (man/reg); Pulse 77 MON; Resp 16 S; Pulse Ox 97% ; Pain 7/10; ag7 11:01 BP 116 / 66; Pulse 64; Resp 16 S; Pulse Ox 95% ; Pain 0/10; ag7 12:00 BP 139 / 83 Supine (man/reg); Pulse 75 LA; Resp 16 S; Pulse Ox 97% on R/A; Pain 0/10; ag7 13:00 BP 120 / 74 LA Supine (man/reg); Pulse 67 MON; Resp 16; Pulse Ox 94% on R/A; Pain 0/10; ag7 14:03 BP 145 / 90; Pulse 87; Pulse Ox 96% on R/A; Pain 0/10; ag7 05:14 Body Mass Index 28.06 (86.18 kg, 175.26 cm) as6 ED Course: 04:57 Patient arrived in ED. es 05:15 Triage completed. as6 05:16 Arm band placed on. as6 05:27 Parker Dunham MD is Attending Physician. mh7 05:30 Cisco Romano, FLAVIO is Primary Nurse. sv1 06:03 Héctor Yun NP is PHCP. pm1 06:42 CBC with Diff Sent. sv1 06:43 Hepatic Function Sent. sv1 06:43 Lipase Sent. sv1 06:43 Basic Metabolic Panel Sent. sv1 06:43 Basic Metabolic Panel Sent. sv1 07:01 Urine Microscopic Only Sent. oe 07:13 Patient has correct armband on for positive identification. Bed in low position. Side sv1 rails up X2. 07:13 Inserted saline lock: 20 gauge in right. sv1 08:03 CT Abd/Pelvis - IV Contrast Only In Process Unspecified. EDMS 14:07 No provider procedures requiring assistance completed. IV discontinued, intact, ag7 bleeding controlled, No redness/swelling at site. Pressure dressing applied. Administered Medications: 07:07 Drug: Phenergan (promethazine) 25 mg Route: IVP; Site: right antecubital; sv1 07:07 Drug: morphine 4 mg Route: IVP; Site: right antecubital; sv1 07:39 Follow up: Pain 0/10 Adult; Response: No adverse reaction; Pain is decreased ag7 07:37 Drug: NS 0.9% 1000 ml Route: IV; Rate: 1000 ml; Site: right antecubital; ag7 08:33 Follow up: Response: No adverse reaction; IV Status: Completed infusion; IV Intake: ag7 1000ml 08:33 Drug: NS 0.9% 1000 ml Route: IV; Rate: 1000 ml; Site: right antecubital; ag7 09:45 Follow up: Response: Adverse reaction, Physician notified; IV Status: Completed ag7 infusion; IV Intake: 1000ml 09:08 Drug: Bentyl (dicyclomine) 20 mg Route: IM; Site: left deltoid; ag7 09:47 Follow up: Response: No adverse reaction ag7 09:08 Drug: Zofran (Ondansetron) 4 mg Route: IVP; Site: right antecubital; ag7 09:46 Follow up: Response: No adverse reaction; Nausea is decreased ag7 09:09 Drug: Rocephin (cefTRIAXone) 1 grams Route: IV; Rate: calculated rate; Site: right ag7 antecubital; 09:46 Follow up: Response: No adverse reaction; IV Status: Completed infusion; IV Intake: [id number] 10:11 Drug: Ativan (LORazepam) 0.5 mg Route: IVP; Site: right antecubital; ag7 10:41 Follow up: Response: No adverse reaction; Nausea is decreased ag7 12:14 Drug: Reglan (metoCLOPramide) 10 mg Route: IVP; Site: right antecubital; ag7 13:03 Follow up: Response: No adverse reaction; Nausea is decreased ag7 12:15 Drug: Benadryl (diphenhydrAMINE) 12.5 mg Route: IVP; Site: right antecubital; ag7 13:04 Follow up: Response: No adverse reaction ag7 Intake: 08:33 IV: 1000ml; Total: 1000ml. ag7 09:45 IV: 1000ml; Total: 2000ml. ag7 09:46 IV: 50ml; Total: 2050ml. ag7 Output: 12:20 Gastric: 50ml (Emesis); Total: 50ml. ag7 Outcome: 13:39 Discharge ordered by MD. pm1 14:07 Discharged to home via wheelchair. ag7 14:07 Condition: stable 14:07 Discharge instructions given to patient, Instructed on discharge instructions, follow up and referral plans. medication usage, Demonstrated understanding of instructions, follow-up care, medications, Prescriptions given X 1. 14:08 Patient left the ED. ag7 Signatures: Dispatcher [employer] Sarika Jimenez Patrick, BEAUTY SALES ADVISOR BEAUTY SALES ADVISOR pm1 Venkata Pagan Maurice, MD MD mh7 Brayan Savage RN RN as6 Cisco Romano RN RN sv1 Una Zamora RN RN ag7
[2021-07-31 14:22] VITALS: TEMP 98.9
[2021-07-31 14:31] VITALS: BP 145/90; O2SAT 96
== END 2021-07-31 14:08 | disposition home or self-care (01) ==
LOC: ER 04:53
DX: R10.10 Upper abdominal pain, unspecified (principal); R11.2 Nausea with vomiting, unspecified; Z20.822 Contact with and (suspected) exposure to COVID-19
CPT/HCPCS: 96365; 96361; 87088; 85025; 87086; 80048; 36415; 81025; 80076; 83690; 0240U; 74177; 96375; 96372; 99284; Q9967; J2765; J2550; J0500; J1200; J7030 ×2; J2405; 81003; 81015

== ENCOUNTER 2022-08-31 18:11 | Inpatient (IN) | payer OTHER ==
--- OUTSIDE RECORDS SUMMARY | 2022-08-31 18:14 | XMS REPORT | Continuity of Care Document ---
:1995 Author Organization [facility] t Address [address] [place] [address] Care Team Providers Name Role Phone Asked, No Pcp Primary Care Physician Unavailable CHADD RIDDLE Attending Clinician Unavailable Nedra Mitchell MA Attending Clinician Unavailable Hanh Sanchez MD Attending Clinician TIGRE JOSE Attending Clinician Unavailable Yang Arzola MD Attending Clinician YANG ARZOLA Attending Clinician Unavailable _[facility]_Pacheco_L Attending Clinician Unavailable BRENDA BARAJAS Attending Clinician Unavailable MIAN LOVING Attending Clinician Unavailable LAB02 Attending Clinician Unavailable Brenda Barajas MD Attending Clinician CHARAN GU Attending Clinician Unavailable _[facility]_Madonna_Camryn Attending Clinician Unavailable Maria Alejandra Peacock Attending Clinician [phone] Robert Garcia Attending Clinician Unavailable Héctor Hopson Attending Clinician Unavailable MORRO PATRICK Attending Clinician Unavailable Carlitos Pedraza Attending Clinician Unavailable ALFREDA THOMPSON Admitting Clinician Unavailable BRITTANY ONEAL Admitting Clinician Unavailable YANG ARZOLA Admitting Clinician Unavailable GC_SWHAOMC_Pacheco_L Admitting Clinician Unavailable GC_JHMD_Thibodeaux_N Admitting Clinician Unavailable Physician, No Primary or Family Admitting Clinician Unavaila Carlitos Schultz Admitting Clinician Unavailable Payers Payer Name Policy Type Policy Number Effective Date Expiration Date S anh [facility] CHOICE/CHOICE [id number] 2021 PLUS 00:00:00 [facility] [id number] 2021 00:00:00 [facility] 3 [id number] 2021 00:00:00 Problems Condition Condition Condition Status Onset Resolution Last Treating Co mments Source Name Details Category Date Date Treatment Clinician Date 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 00:00:00 00:00:00 Smoking Status Start Date Stop Date Source Never Smoker [facility] Medical Tobacco smoking consumption unknown [facility] Medications Ordered Filled Start Stop Current Ordering Indication Dosage Frequency Signature Comments Components Source Medication Medication Date Date Medication? Clinician (SIG) Name Name ondansetron Yes 4mg Q8H Take 1 Meth la nena ODT 3-26 tablet (4 st (ZOFRAN-ODT 00:00: mg total) H ospita ) 4 MG 00 by mouth l disintegrat every 8 ing tablet (eight) hours as needed for nausea or vomiting. hydrOXYzine Yes 25mg QD Take 1 Meth la nena (ATARAX) 25 3-26 tablet (25 st MG tablet 00:00: mg total) Hos trice 00 by mouth l nightly as needed (anxiety or insomnia). promethazin 2022- Yes 25mg Q6H Insert 1 M gil almeida 08-[address] (PHENERGAN) 00:00: 04:59 y (25 mg H ospita 25 MG 00 :00 total) l suppository into the rectum every 6 (six) hours as needed for nausea or vomiting for up to 30 days. pantoprazol 2022- Yes 40mg QD Take 1 Met hodi e 08-11 tablet (40 st (Protonix) 00:00: 04:59 mg total) H ospita 40 MG EC 00 :00 by mouth l tablet daily for 30 days. morpHINE (4 2022- No 4mg 4 mg, Slow Univers mg/mL) 07-01 IV Push, ity of injection 4 14:45: 14:06 [place] 1 [place] :[place] dose, On Medical Mon Branch 07/01/22 at 0845, NAE NaCl 0.9% 2022- No 1000mL at 999 Uni vers (NS) bolus 07-01 mL/hr, ity of infusion 14:15: 16:28 1,000 mL, Jhonny as 1,000 mL 00 :00 IV Medical Infusion, Branch ONCE, 1 dose, On [facility] 07/01/22 at 0815, NAE iopamidol 2022- No [id number] 65mL 65 mL, U nivers (ISOVUE 07-01 Intravenou ity o f 370-500 mL) 14:12: 14:13 s, ONCE, 1 [place] injection 00 :00 dose, On Medica l 65 mL Mon Branch 07/01/22 at 0830, Routine famotidine 2022- No 20mg 20 mg, Univ ers (PEPCID 07-01 Slow IV ity of (PF)) 13:30: 14:03 Push, [place] injection 00 :00 ONCE, 1 Medical 20 mg dose, On Branch [facility] 07/01/22 at 0730, NAE metoclopram 2022- No 10mg 10 mg, Uni vers nicolas HCl 07-01 Slow IV ity of (REGLAN) 13:30: 14:06 Push, [place] injection 00 :00 ONCE, 1 Medical 10 mg dose, On Branch 07/01/22 at 0730, NAE metoclopram Yes [id number] 10mg Take 1 Univers nicolas HCl 10 2-13 tablet by ity of mg tablet 00:00: mouth [place] 00 every 6 Medical (six) Branch hours as needed for Nausea and Vomiting (N/V). dicyclomine Yes [id number] 20mg Take 1 Univers 20 mg 2-13 tablet by ity of tablet 00:00: mouth [place] 00 every 6 Medical (six) Branch hours as needed for Abdominal pain (and/orabd ominal cramping). No known No No known Metho di medications 12-[address] 18:11: s Hospita 09 l hydrocodone hydrocodone No 1 Q6H hydrocodon [facility] 5 5 e 5 Medical mg-acetamin mg-acetamin mg-acetami ophen 325 ophen 325 nophen 325 mg tablet mg tablet mg tablet Take 1 Take 1 Take 1 tablet tablet tablet every 6 every 6 every 6 hours by hours by hours by oral route oral route oral route as needed. as needed. as needed. ondansetron ondansetron No 1 BID ondansetro [facility] 8 mg 8 mg n 8 mg Medical disintegrat disintegrat disintegra ing tablet ing tablet ting Place 1 Place [address] 1 twice a day twice a day tablet by by twice a translingua translingua day by l route as l route as translingu needed. needed. al route as needed. Vital Signs Vital Name Observation Time Observation Value Comments Source Systolic blood 2022-07-01 15:30:00 99 mm[Hg] Univer sity of pressure [facility] Diastolic blood 2022-07-01 15:30:00 68 mm[Hg] [facility] Heart rate 2022-07-01 15:30:00 50 /min [facility] Respiratory rate 2022-07-01 15:30:00 16 /min [facility] Oxygen saturation in 2022-07-01 15:30:00 100 /min [facility] Arterial blood by [facility] Pulse oximetry Branch Body temperature 2022-07-01 13:16:00 37.28 [facility] Body height 2022-07-01 13:16:00 175.3 cm [facility] Body weight 2022-07-01 13:16:00 63.504 kg [facility] BMI 2022-07-01 13:16:00 20.67 kg/m2 [facility] BP Diastolic 2021-09-25 00:00:00 84 mm[Hg[facility] 2021-09-25 00:00:00 69 [in_i] [facility] BMI (Body Mass 2021-09-25 00:00:00 25.9 kg/m2 [facility] Index) BP Systolic 2021-09-25 00:00:00 120 mm[Hg] [facility] Body Weight 2021-09-25 00:00:00 2806 [oz_av] [facility] Systolic blood 2022-08-11 20:45:00 139 mm[Hg] [facility] pressure Diastolic blood 2022-08-11 20:45:00 80 mm[Hg] [facility] pressure Heart rate 2022-08-11 20:45:00 85 /min [facility] Respiratory rate 2022-08-11 20:45:00 18 /min [facility] Oxygen saturation in 2022-08-11 20:45:00 98 /min [facility] Arterial blood by Pulse oximetry Body temperature 2022-08-11 17:12:[address] [facility] Body height 2022-08-11 17:10:00 175.3 cm [facility] Body weight 2022-08-11 17:10:00 58.968 kg [facility] BMI 2022-08-11 17:10:00 19.20 kg/m2 [facility] Procedures Procedure Date / Time Performing Clinician Source Performed CT RENAL STONE PROTOCOL 2022-08-11 20:15:[address] [facility] YoNico URINE CULTURE 2022-08-11 18:53:[facility] CBC WITH PLATELET AND 2022-08-11 18:24:00 Tatum Treadwell [facility] DIFFERENTIAL Yown-Naomy URINALYSIS SCREEN AND 2022-08-11 18:24:00 Eben, Tatum [facility] MICROSCOPY, WITH REFLEX Fanin-Naomy TO CULTURE LIPASE LEVEL 2022-08-11 18:24:00 Eben, Tatum Urias Ho spital [facility] HCG QUALITATIVE, SERUM 2022-08-11 18:24:00 Tatum Treadwello [facility] SCREEN Yown[facility] COMPREHENSIVE METABOLIC 2022-08-11 18:24:00 [facility] URINE DRUGS OF ABUSE 2022-08-11 18:24[facility] ESTIMATED GFR 2022-08-11 18:24:00 Tatum Treadwell Ho spital [facility] CT ABDOMEN PELVIS W 2022-07-01 14:22:00 Yang Arzola [facility] POCT TEST 2022-07-01 14:12:00 Yang Arzola [facility] LACTIC ACID WHOLE BLOOD 2022-07-01 13:58:00 Yang Arzola [facility] LIPASE 2022-07-01 13:34:00 Dariusz [facility] TEST, SERUM 2022-07-01 13:34:00 Yang Arzola [facility] COMP. METABOLIC PANEL 2022-07-01 13:34:[address] [facility] ([id number]) [facility] CBC WITH DIFF 2022-07-01 13:34:00 Yang Arzola [facility] URINALYSIS 2022-07-01 13:34:00 Yang Arzola [facility] NOTICE OF PRIVACY 2022-07-01 12:51:03 Doctor Unassigned, No [facility] PRACTICES Name [facility] CONSENT/REFUSAL FOR 2022-07-01 12:50:41 [facility] Endoscopy 2021-08-20 00:00:00 [facility] Plan of Care Planned Activity Planned Date Details Comments Source Future Scheduled 2022-08-19 COVID-19 VACCINE (#1) [facility] Test 16:31:22 [code = COVID-19 VACCINE (#1)] Future Scheduled 2022-08-19 Hepatitis C screening [facility] Test 16:31:22 (procedure) [code = 714287994] Future Scheduled 2022-08-[address] [facility] Test 16:31:22 neoplasm of cervix (procedure) [code = 047239537] Future Scheduled 2022-08-19 INFLUENZA VACCINE [code [facility] Test 16:31:22 = INFLUENZA VACCINE] Diagnostic Test 2021-09-25 C-reactive protein, [facility] Pending 00:00:00 quantitative [code = C-reactive protein, quantitative] Diagnostic Test 2021-09-25 Glucose [Mass/volume] Gwendolyn via [facility] Pending 00:00:00 in Cerebral spinal fluid [code = 2342-4] Diagnostic Test 2021-09-25 Pyridoxine congeners [facility] Pending 00:00:00 [Mass/volume] in Serum or Plasma [code = 2901-7] Diagnostic Test 2021-09-25 Grapefruit IgE Ab [facility] Pending 00:00:00 [Units/volume] in Serum [code = 6131-7] Diagnostic Test 2021-09-25 HbA1c (hemoglobin A1c), P [facility] Pending 00:00:00 blood [code = HbA1c (hemoglobin A1c), blood] Diagnostic Test 2021-09-25 TSH, serum or plasma [facility] Pending 00:00:00 [code = TSH, serum or plasma] Diagnostic Test 2021-09-25 lipid panel, serum [facility] Pending 00:00:00 [code = lipid panel, serum] Diagnostic Test 2021-09-25 TSH + free T4, serum [facility] Pending 00:00:00 [code = TSH + free T4, serum] Diagnostic Test 2021-09-25 Deprecated Mephenytoin [facility] Pending 00:00:00 [Mass] of Dose [code = 4312-5] Diagnostic Test 2021-09-25 chlorproMAZINE [facility] ical Pending 00:00:00 [Mass/volume] in Urine [code = 3473-6] Diagnostic Test 2021-09-25 Adenosine [facility] Pending 00:00:00 monophosphate.cyclic/Cr eatinine [Mass Ratio] in Serum or Plasma [code = 1728-5] Diagnostic Test 2021-09-25 beta-HCG, quantitative, P [facility] Pending 00:00:00 serum or plasma [code = beta-HCG, quantitative, serum or plasma] Encounters Start End Encounter Admission Attending Care Care Encounter Source Date/Time Date/Time Type Type Clinicians Facility Department ID 2022-08-22 Outpatient [facility] [id number] [place] 08:01:20 [id number] [facility] 2022-08-20 Outpatient [facility] [id number] [place] 12:00:21 [id number] [facility] 2022-08-18 2022-08-23 [facility] [id number] 16:53:00 12:30:00 [facility] [place]22-08-14 2022-08-14 Telephone Stephen, 1.2.840.1 [id number] Methodi 00:00:00 00:00:00 Nedra Moore [id number] 3.430.2.7 Hospit a .3.192499 l .8 2022-08-11 2022-08-11 Emergency Rivenes, 1.2.840.1 [id number] [facility] 12:42:00 16:56:00 Hanh Berkowitz 73727.1.[address] 3.430.2.7 Hospit a .3.437535 l .8 2022-08-11 2022-08-11 Travel 1.2.840.1 [id number] [id number] [facility] 00:00:00 00:00:[address] 3.430.2.7 0.2.7.3.698 Ho spita .3.228716 084.8 l .8 2022-08-11 2022-08-11 Emergency [facility] [id number] [place] 00:00:00 00:00:00 HANH Rodriguez [facility] 2022-07-22 2022-07-25 [facility] [id number] 12:30:00 13:19:00 [facility] l 2022-07-01 2022-07-01 Emergency Dariusz [facility] [id number] [id number] Univers 07:18:00 10:30:00 Yang SANCHEZ 350.1.13.[address] [facility] 4.2.7.2.686 [facility] [id number] [facility] 084 Branch 2022-07-01 2022-07-01 Emergency X DARIUSZ [facility] ERT [id number] Univers 07:18:00 10:30:00 YANG lov[facility] 2022-05-01 2022-05-01 Outpatient GC_[facility]_ PRIV PRIV [id number] [facility] 00:00:00 00:00:00 Pacheco_L [id number] [facility] 2022-04-29 2022-04-29 Outpatient GC_SWHAOMC_ PRIV PRIV [id number] [facility] 00:00:00 00:00:00 Pacheco_L [id number] [facility] 2022-04-26 2022-04-26 Outpatient GC_SWH[facility]OMC_ PRIV PRIV [id number] [facility] 00:00:00 00:00:00 Pacheco_L [id number] [facility] 2022-04-22 2022-04-22 Outpatient GC_SWHAOMC_ PRIV PRIV [id number] [facility] 00:00:00 00:00:00 Pacheco_L [id number] [facility] 2022-04-19 2022-04-19 Outpatient GC_SWHAOMC_ PRIV PRIV [id number] [facility] 00:00:00 00:00:00 Pacheco_L [id number] [facility] 2022-04-15 2022-04-15 Outpatient GC_SWHAOMC_ PRIV PRIV 237 [id number] [facility] 00:00:00 00:00:00 Pacheco_L [id number] [facility] 2022-04-13 2022-04-13 Outpatient GC_SWHAOMC_ PRIV PRIV [id number] [facility] 00:00:00 00:00:00 Pacheco_L [id number] [facility] 2022-04-10 2022-04-10 Outpatient GC_SWHAOMC_ PRIV PRIV [id number] [facility] 00:00:00 00:00:00 Pacheco_L [id number] [facility] 2022-04-04 2022-04-04 Outpatient PRIV PRIV [id number] [facility] 00:00:00 00:00:00 [id number] Medica l 2021-11-29 2021-11-29 Outpatient MINDI BARAJAS [id number] [place] 00:00:00 00:00:00 BRENDA Seybol d 2021-11-27 2021-11-27 Outpatient MINDI LOVING [id number] [facility] 00:00:00 00:00:00 MUHAMMED Seybo ld 2021-11-26 2021-11-26 Outpatient LAB02 MINDI BATISTA [id number] [facility] 17:20:00 17:20:00 Seybol d 2021-11-26 2021-11-26 Office ISATU Barajas 1.2.840.114 [id number] [facility] 16:45:00 17:00:00 Visit Brenda Gee 350.1.13.13 Se ybold 1.2.7.2.686 [id number] 2021-11-26 2021-11-26 Outpatient BRITTANIEMINDI [id number] [facility] 15:15:00 15:15:00 CHARAN Seybol d 2021-11-08 2021-11-08 Outpatient GC_JHMD_Thi PRIV PRIV [id number] [facility] 01:24:00 01:24:00 bodeaux_N [id number] [facility] 2021-10-11 2021-10-11 Outpatient GC_JHMD_Thi PRIV PRIV 237 [id number] [facility] 12:54:00 12:54:00 bodeaux_N [id number] [facility] 2021-09-26 2021-09-26 Outpatient GC_JHMD_Thi PRIV PRIV 237 [id number] [facility] 12:24:00 12:24:00 bodeaux_N [id number] [facility] 2021-09-25 2021-09-25 Outpatient GC_JHMD_Thi PRIV PRIV 237 [id number] [facility] 04:34:00 04:34:00 bodeaux_N [id number] [facility] 2021-09-25 2021-09-25 Maria Alejandra R PRIV [facility] 2021 509 [facility] 00:00:00 00:00:00 [facility] HUNG day: 1900 GC_JHMD_Hou N [facility], Office* [address], [place] [address] , Ph. 2021-09-25 2021-09-25 [facility] PR[facility] [id number] 00:00:00 00:00:00 Maria Alejandra R [id number] 2021-08-12 2021-08-12 Emergency EM Radha [facility]ER [id number] [facility] 18:27:00 22:03:00 Robert 75 [facility] 2021-08-01 2021-08-01 Outpatient GC_JHMD_Thi PRIV PRIV 237 [id number] [facility] 10:30:00 10:30:00 bodeaux_N [id number] [facility] 2021-07-29 2021-07-30 Emergency EM Mark Anthony [facility] [id number] [facility] 21:27:00 00:49:00 , Héctor 37 [facility] 2021-07-21 2021-07-21 Emergency E DARNELL, MHNW MHNW 7500 MHNW 06:42:00 10:16:00 MORRO 2021-06-25 2021-06-26 Inpatient EM Keila [facility] MED [id number] [facility] 09:48:00 16:57:00 Surainder 70 [facility] Results Test Description Test Time Test Comments Results Result Comments Source Urine culture 2022-08-13 03:36:00 Test Item Value Reference Range Interpretation Comme nts Urine culture isolate (test code col/cc Specimen InformationSpecimen Source: = [id number]) UrineSpecimen S ite: [facility] [id number] 14:34:02 Test Item Value Reference Range Interpretation Comments PREG SERUM (test code Negative = [id number]) KIMBERLEE (test code = KIMBERLEE) Less than 10 IU/L. ?If low titer or ectopic is suspected, resubmit specimen in 48-72 hours. [facility] Whole [id number] 14:12:35 Test Item Value Reference Range Interpretation Comments LACTIC ACID (test code = 1.53 mmol/L 0.50-2.20 3927458934) Lab Interpretation (test code = Normal 09923-4) [facility] [id number] 14:12:00 Test Item Value Reference Range Interpretation Comments POCT PREG (test code = 1605) negative On board controls acceptable with present C Line (test code = 3574) POCT PREG LOT # (test code = 3575) [id number] POCT PREG TEST DATE (test 10/17/2023 code = 3576) Lab Interpretation (test code = Normal 92115-8) [facility]. METABOLIC PANEL (24377)2022-07-01 14:07:48 Test Item Value Reference Range Interpretation Comments NA (test code = 135 mmol/L 135-145 6340646269) K (test code = 3.3 mmol/L 3.5-5.0 L 0781258274) CL (test code = 93 mmol/L 98-108 L 5132807944) CO2 TOTAL (test code = 33 mmol/L 23-31 H 6763209278) AGAP (test code = 9 2-16 4097259938) BUN (test code = 17 mg/dL 7-23 5959591740) GLUCOSE (test code = 125 mg/dL 70-110 H 2069455909) CREATININE (test code = 0.97 mg/dL 0.50-1.04 0960984143) TOTAL BILI (test code = 1.0 mg/dL 0.1-1.8 1975941275) CALCIUM (test code = 9.3 mg/dL 8.6-10.6 3752063223) T PROTEIN (test code = 8.2 g/dL 6.3-8.2 6881945287) ALBUMIN (test code = 5.0 g/dL 3.5-5.0 4367477412) ALK PHOS (test code = 58 U/L 34-122 6769874117) ALTv (test code = 25 U/L 5-35 1742-6) AST(SGOT) (test code = 24 U/L 13-40 5557899016) eGFR (test code = 69.4 mL/min/1.73m2 5837028531) KIMBERLEE (test code = KIMBERLEE) Association of Glomerular Filtration Rate (GFR) and Staging of Kidney Disease* + --+ --+ ------+| GFR (mL/min/1.73 m2) ?| With Kidney Damage ?| ?Without Kidney Damage+ --------+ --------+ +| ?>90 ?| ?Stage one ?| ? Normal ?+ ---+ ---+ -------+| ?60-89 ?| ?Stage two ?| ? Decreased GFR ? + --+ --+ ------+| ?30-59 ?| ?Stage three ?| ? Stage three ? + --+ --+ ------+| ?15-29 ?| ?Stage four ? | ? Stage four ?+ ---+ ---+ -------+| ?<15 (or dialysis) ? ?| ?Stage five ? | ? Stage five ?+ ---+ ---+ -------+ *Each stage assumes the associated GFR level has been in effect for at least three months. ?Stages 1 to 5, with or without kidney disease, indicate chronic kidney disease. Notes: Determination of stages one and two (with eGFR >59mL/min/1.73 m2) requires estimation of kidney damage for at least three months as defined by structural or functional abnormalities of the kidney, manifested by either:Pathological abnormalities or Markers of kidney damage (including abnormalities in the composition of the blood or urine or abnormalities in imaging tests). Lab Interpretation Abnormal (test code = 78280-2) [facility]2023-02-13 14:07:28 Test Item Value Reference Range Interpretation Comments LIPASE (test code = 8375658638) 36 U/L 0-220 Lab Interpretation (test code = Normal 57971-8) [facility] WITH [id number] 13:47:03 Test Item Value Reference Range Interpretation Comments WBC (test code = 10.09 See_Comment [Automated 6090-2) message] The sy stem which generated this result transmitted reference range : 4.30 - 11.10 10*3/?L. The reference range was not used to interpret this result as normal/abnormal . RBC (test code = 4.71 See_Comment [Automated 789-8) message] The sy stem which generated this result transmitted reference range : 3.93 - 5.25 10*6/?L. The reference range was not used to interpret this result as normal/abnormal . HGB (test code = 14.1 g/dL 11.6-15.0 718-7) HCT (test code = 41.6 % 35.7-45.2 4544-3) MCV (test code = 88.3 fL 80.6-95.5 787-2) MCH (test code = 29.9 pg 25.9-32.8 785-6) MCHC (test code = 33.9 g/dL 31.6-35.1 786-4) RDW-SD (test code = 39.2 fL 39.0-49.9 25025-8) RDW-CV (test code = 12.0 % 12.0-15.5 788-0) PLT (test code = 319 See_Comment [Automated 777-3) message] The sy stem which generated this result transmitted reference range : 166 - 358 10*3/ ?L. The reference r keiko was not used to interpret this result as normal/abnormal . MPV (test code = 10.6 fL 9.5-12.9 87910-7) NRBC/100 WBC (test 0.0 See_Comment [Automat ed code = 5485390907) message] The system which generated this result transmitted reference range : 0.0 - 10.0 /100 WBCs. The refer ence range was not u sed to interpret th is result as normal/abnormal . NRBC x10^3 (test code See_Comment [Auto mated = 7794320627) message] The s ystem which generated this result transmitted reference range : 10*3/?L. The reference range was not used to interpret this result as normal/abnormal . GRAN MAT (NEUT) % 75.1 % (test code = 770-8) IMM GRAN % (test code 0.50 % = 7774901506) LYMPH % (test code = 18.2 % 736-9) MONO % (test code = 5.2 % 5905-5) EOS % (test code = 0.2 % 713-8) BASO % (test code = 0.8 % 706-2) GRAN MAT x10^3(ANC) 7.58 10*3/uL 1.88-7.09 H (test code = 0754572285) IMM GRAN x10^3 (test 0.05 10*3/uL 0.00-0.06 code = 6099206427) LYMPH x10^3 (test code 1.84 10*3/uL 1.32-3.29 = 731-0) MONO x10^3 (test code 0.52 10*3/uL 0.33-0.92 = 742-7) EOS x10^3 (test code = 0.03-0.39 L 711-2) BASO x10^3 (test code 0.08 10*3/uL 0.01-0.07 H = 704-7) Lab Interpretation Abnormal (test code = 85999-1) [facility] METABOLIC [id number] 19:55:00 Test Item Value Reference Range Interpretation Comments SODIUM (test code = 141 MMOL/L 137-145 N NA) POTASSIUM (test code = 4.1 MMOL/L 3.5-5.1 N K) CHLORIDE (test code = 100 MMOL/L 98-107 N CL) CARBON DIOXIDE (test 19 MMOL/L 22-30 L code = CO2) ANION GAP (test code = 26 MMOL/L 14-24 H GAP) GLUCOSE (test code = 110 MG/DL 74-106 H GLU) BLOOD UREA NITROGEN 11 MG/DL 7-17 N (test code = BUN) GLOMERULAR FILTRATION > 60 Report ing units: RATE (test code = GFR) ml/mi n/1.73 m2 (Modified MDRD Formula)Referen ce Range: > or = 6 0 ml/min/1.73 m2 CREATININE (test code 0.90 MG/DL 0.52-1.04 N = CREAT) CALCIUM (test code = 10.4 MG/DL 8.4-10.2 H CA) HEPATIC FUNCTION [id number] 19:55:00 Test Item Value Reference Range Interpretation Comments TOTAL PROTEIN 9.4 G/DL 6.3-8.2 H [facility] Clinical Diagnostic (test code = has made us bhaskar re of PROT) newinformation regarding the potential i nterference ofEltrombopag ( a bone marrow stimulan t used to treatthrombocyt onmenia and aplastic anemia ) with specific assays on the Vitros 5600 of which Total Protein is one of thoseassays per formed in our lab.Ivye brooke testing perform ed at Ortho determined that Eltrombopag does interfere with Vitros Total Protein asfollowsEltrom bopag Interference fo r Vitros Product Total Protein:======= Eltrombopag Max Observed Av g. BiasConcentrati on Concentration Concentration== ==== 2.5 mg/dl 6.0 g/dl +0.41 +0.34 3.5 mg/dl 6.0 g /dl +0.50 +0.45 5 mg/dl 6 .0 g/dl +0.73 +0.65 2.5 mg/dl 8.0 g/dl +0.44 +0.4 1 3.5 mg/dl 8.0 g/dl +0.55 +0.52 5 mg/dl 8.0 g/dl +0.86 +0.77 ALBUMIN (test 5.4 G/DL 3.5-5.0 H code = ALB) BILIRUBIN TOTAL 1.1 MG/DL 0.2-1.3 N Eltrombopag Interference (test code = for Vitros Prod uct TBil, BILT) BuBc: Assa y Eltrombopag Hannah lyte/ Max Observed Avg. B ias Concentration C oncentration Concentration== ====TBil 7mg/dl TBil/ 1. 2mg/dl +0.23mg.dl +0.2 0mg/dlBuBc 3.5mg/dl Bu/0. 8mg/dl +0.25mg/dl +0.2 4mg/dlBuBc 7 mg/dl Bu/14.2mg /dl +0.38mg/dl +0.2 5mg/dlBuBc 5mg/dl Bc/0mg/d l +0.25mg/dl +0.15mg/dlBuBc 3.5mg/dl Bc/2.8mg/dl +0 .25mg/dl +0.23mg/dl BILIRUBIN DIRECT 0.0 MG/DL 0.0-0.3 N Eltrombopag Interference (test code = for Vitros Prod uct TBil, BILD) BuBc: Assa y Eltrombopag Hannah lyte/ Max Observed Avg. B ias Concentration C oncentration Concentration== ====TBil 7mg/dl TBil/ 1. 2mg/dl +0.23mg.dl +0.2 0mg/dlBuBc 3.5mg/dl Bu/0.8 mg/dl +0.25mg/dl +0.2 4mg/dlBuBc 7 mg/dl Bu/14.2m g/dl +0.38mg/dl +0.2 5mg/dlBuBc 5mg/dl Bc/0mg/d l +0.25mg/dl +0.15mg/dlBuBc 3.5mg/dl Bc/2.8mg/dl +0. 25mg/dl +0.23mg/dl SGOT/AST (test 39 UNITS/L 14-36 H code = AST) SGPT/ALT (test 35 UNITS/L 0-34 H code = ALT) ALKALINE 83 UNITS/L 38-126 N PHOSPHATASE (test code = ALKP) [id number] 19:55:00 Test Item Value Reference Range Interpretation Comments LIPASE (test code = LIP) 17 UNITS/L 23-300 L HCG SERUM [id number] 19:55:00 Test Item Value Reference Range Interpretation Comments HCG SERUM QUAL (test code = HCGQL) NEGATIVE NEGATIVE CBC W/O [id number] 19:37:00 Test Item Value Reference Range Interpretation Comments WHITE BLOOD CELL (test code = 12.5 K/MM3 3.8-9.8 H WBC) RED BLOOD CELL (test code = 5.05 M/MM3 3.58-4.97 H RBC) HEMOGLOBIN (test code = HGB) 15.5 G/DL 11.2-14.9 H HEMATOCRIT (test code = HCT) 47.6 % 33.2-43.5 H MEAN CELL VOLUME (test code = 94 fL 80.7-99.1 N MCV) MEAN CELL HGB (test code = MCH) 30.7 pg 27.0-34.1 N MEAN CELL HGB CONCETRATION 32.6 % 32.2-35.7 N (test code = MCHC) RED CELL DISTRIBUTION WIDTH 13.5 % 12.1-15.2 N (test code = RDW) PLATELET COUNT (test code = 309 K/MM3 129-368 N PLT) NEUTROPHIL # (test code = NT#) 11.50 K/mm3 2.0-7.6 H IMMATURE GRANULOCYTE # (test 0.06 x10 3/uL 0-0.03 H code = IG#) LYMPHOCYTE # (test code = LY#) 0.52 K/mm3 1.0-3.8 L MONOCYTE # (test code = MO#) 0.38 K/mm3 0.1-0.8 N EOSINOPHIL # (test code = EO#) 0.00 K/mm3 0.0-0.2 N BASOPHIL # (test code = BA#) 0.02 K/mm3 0.0-0.2 N NUCLEATED RBC # (test code = 0.00 K/mm3 0.0-0.1 N NRBC#) DRUGS OF ABUSE SCREEN [id number] 19:08:00 Test Item Value Reference Range Interpretation Comments UR COCAINE (test code = NEGATIVE NEGATIVE Cut off Value: 300 COCAU) ng/mL UR CANNABINOIDS (THC) POSITIVE NEGATIVE A Cut of f Value: 50 (test code = CANU) ng/mL UR AMPHETAMINE (test code NEGATIVE NEGATIVE Cu t off Value: 1000 = AMPHU) ng/mL UR BARBITURATE QUAL (test NEGATIVE NEGATIVE Cu t off Value: 200 code = BARBQLU) ng/mL UR BENZODIAZEPINE (test NEGATIVE NEGATIVE Cut off Value: 200 code = BENZU) ng/mL UR OPIATES QUAL (test code NEGATIVE NEGATIVE C ut off Value: 300 = OPIAQLU) ng/mL UR PHENCYCLIDINE (PCP) NEGATIVE NEGATIVE Cut o ff Value: 25 (test code = PHENCU) ng/mL URINALYSIS [id number] 18:55:00 Test Item Value Reference Range Interpretation Comments [...] A code = PROU) UA UROBILINIOGEN DIPSTICK NORMAL MG/DL NORMAL (test code = URO) UA NITRITE DIPSTICK (test NEGATIVE NEGATIVE code = GOYO) UA LEUKOCYTE ESTERASE NEGATIVE /mm3 NEGATIVE DIPSTICK (test code = LEUU) UA CULTURE NEEDED? (test NO, WBC<10 Criteria Culture Chk code = UACULT) UR HCG [id number] 18:55:00 Test Item Value Reference Range Interpretation Comments UR HCG QUAL (test code = HCGQLU) NEGATIVE NEGATIVE UA [id number] 18:55:00 Test Item Value Reference Range Interpretation Comments UA RBC (test code = RBCU) 0-3 RBC/HPF 0-3 UA WBC (test code = XWBCU) 0-3 WBC/HPF 0-5 UA EPITHELIAL CELLS (test code MANY EPI/HPF FEW = EPIU) UA BACTERIA (test code = MODERATE NONE A XBACU) UA MUCUS (test code = MUCU) MODERATE #/LPF NONE A COMPREHENSIVE METABOLIC [id number] 22:24:00 Test Item Value Reference Range Interpretation Comments SODIUM (test code 142 MMOL/L 137-145 N = NA) POTASSIUM (test 4.0 MMOL/L 3.5-5.1 N code = K) CHLORIDE (test 100 MMOL/L 98-107 N code = CL) CARBON DIOXIDE 23 MMOL/L 22-30 N (test code = CO2) ANION GAP (test 23 MMOL/L 14-24 N code = GAP) GLUCOSE (test 112 MG/DL 74-106 H code = GLU) BLOOD UREA 13 MG/DL 7-17 N NITROGEN (test code = BUN) GLOMERULAR > 60 Reporting units : FILTRATION RATE ml/min/1.73 m2 (Modified (test code = GFR) MDRD Formu la)Reference Range: > or = 6 0 ml/min/1.73 m2 CREATININE (test 1.00 MG/DL 0.52-1.04 N code = CREAT) TOTAL PROTEIN 10.0 G/DL 6.3-8.2 H [facility] Clinical Diagnostic (test code = has made us bhaskar re of PROT) newinformation regarding the potential i nterference ofEltrombopag ( a bone marrow stimulan t used to treatthrombocyt onmenia and aplastic anemia ) with specific assays on the Vitros 5600 of which Total Protein is one of thoseassays per formed in our lab.Interfe rence testing perform ed at Ortho determined that Eltrombopag does interfere with Vitros Total Protein asfollowsEltrom bopag Interference fo r Vitros Product Total Protein:======= Eltrombopag Max Observed Av g. BiasConcentrati on Concentration Concentration== ==== 2.5 mg/dl 6.0 g/dl +0.41 +0.34 3.5 mg/dl 6.0 g /dl +0.50 +0.45 5 mg/dl 6 .0 g/dl +0.73 +0.65 2.5 mg/dl 8.0 g/dl +0.44 +0.4 1 3.5 mg/dl 8.0 g/dl +0.55 +0.52 5 mg/dl 8.0 g/dl +0.86 +0.77 ALBUMIN (test 5.4 G/DL 3.5-5.0 H code = ALB) CALCIUM (test 10.7 MG/DL 8.4-10.2 H code = CA) BILIRUBIN TOTAL 1.0 MG/DL 0.2-1.3 N Eltrombopag Interference (test code = for Vitros Prod uct TBil, BILT) BuBc: Assa y Eltrombopag Hannah lyte/ Max Observed Avg. B ias Concentration C oncentration Concentration== ====TBil 7mg/dl TBil/ 1. 2mg/dl +0.23mg.dl +0.2 0mg/dlBuBc 3.5mg/dl Bu/0.8 mg/dl +0.25mg/dl +0.2 4mg/dlBuBc 7 mg/dl Bu/14.2mg /dl +0.38mg/dl +0.2 5mg/dlBuBc 5mg/dl Bc/0mg/d l +0.25mg/dl +0.15mg/dlBuBc 3.5mg/dl Bc/2.8mg/dl +0. 25mg/dl +0.23mg/dl SGOT/AST (test 26 UNITS/L 14-36 N code = AST) SGPT/ALT (test 36 UNITS/L 0-34 H code = ALT) ALKALINE 97 UNITS/L 38-126 N PHOSPHATASE (test code = ALKP) [id number] 22:24:00 Test Item Value Reference Range Interpretation Comments LIPASE (test code = LIP) 15 UNITS/L 23-300 L URINALYSIS [id number] 22:15:00 Test Item Value Reference Range Interpretation [...] NEGATIVE code = GOYO) UA LEUKOCYTE ESTERASE NEGATIVE /mm3 NEGATIVE DIPSTICK (test code = LEUU) UA CULTURE NEEDED? (test NO, WBC<10 Criteria Culture Chk code = UACULT) UA [id number] 22:15:00 Test Item Value Reference Range Interpretation Comments UA RBC (test code = RBCU) 0-3 RBC/HPF 0-3 UA WBC (test code = XWBCU) 0-3 WBC/HPF 0-5 UA EPITHELIAL CELLS (test code MANY EPI/HPF FEW = EPIU) UA BACTERIA (test code = MANY NONE A XBACU) UA MUCUS (test code = MUCU) MODERATE #/LPF NONE A UR HCG [id number] 22:15:00 Test Item Value Reference Range Interpretation Comments UR HCG QUAL (test code = HCGQLU) NEGATIVE NEGATIVE CBC W/AUTO [id number] 21:57:00 Test Item Value Reference Range Interpretation [...] 0.00 K/mm3 0.0-0.1 N NRBC#) BASIC METABOLIC [id number] 06:23:00 Test Item Value Reference Range Interpretation [...] code = 8.2 MG/DL 8.4-10.2 L CA) [id number] 16:04:00 Test Item Value Reference Range Interpretation Comments ACETAMINOPHEN (test code = < 10.0 MCG/ML 10-30 L ACET) DRUGS OF ABUSE SCREEN [id number] 14:46:00 Test Item Value Reference Range Interpretation [...] 25 (test code = PHENCU) ng/mL URINALYSIS [id number] 13:58:00 Test Item Value Reference Range Interpretation [...] = UACULT) SOURCE OF URINE: CLEAN CATCHUA [id number] 13:58:00 Test Item Value Reference Range Interpretation Comments UA RBC (test code = RBCU) 0-3 RBC/HPF 0-3 UA WBC (test code = XWBCU) 3-5 WBC/HPF 0-5 UA EPITHELIAL CELLS (test MODERATE EPI/HPF FEW A code = EPIU) UA BACTERIA (test code = FEW NONE XBACU) SOURCE OF URINE: CLEAN CATCHUR HCG [id number] 13:58:00 Test Item Value Reference Range Interpretation Comments UR HCG QUAL (test code = HCGQLU) NEGATIVE NEGATIVE SOURCE OF URINE: CLEAN CATCH- CT ABD PELVIS [id number] 12:14:00 [facility] 1995 Sex: F Patient Name: DONNA NICOLE Unit No: [id number] EXAMS: CPT CODE: [id number] CT ABD PELVIS W/CONT 17190 CT Abdomen and Pelvis with contrast. Location: S17 Clinical indication: 25-year-old with abdominal pain Comparison: None Technique: Computed axial images were obtained from the diaphragms through the pubic symphysis following IV administration of contrast. Up to date CT equipment and radiation dose reduction technique were utilized. Findings: Abdomen: There is mild atelectasis within the lung bases. The liver, gallbladder, spleen, adrenal glands, pancreas, kidneys, and bowel are without acute abnormality. Pelvis: Normal appendix. The uterus is present. Urinary bladder is partially distended. No freepelvic fluid. No acute osseous abnormality of the abdomen or pelvis. Impression: No abnormality to account for patient's symptoms. [id number] Reported and signed by: Yang Edge M.D. CC: Hank Story DO Technologist: Dario Morales, RT(R); Amand CTDI: DLP: Trnscrpt: 06/25/2021 (1214) [id number] [facility] NAME: DONNA NICOLE [id number] PHYS: [place] [address] : 1995 AGE: 25 SEX: F LOC: ABDIEL PHONE #: [phone] EXAM DATE: 06/25/2021 STATUS: REG ER FAX #: [phone] RAD #: D/C DT PAGE 1 Signed Report Patient Name: DONNA NICOLE Unit No: [id number] EXAMS: CPT CODE: [id number] CT ABD PELVIS W/CONT 79083 (Continued) Orig Print D/T: S: 06/25/2021 (1238) [facility] NAME: DONNA NICOLE [id number] PHYS: [place] [address] :1995 AGE: 25 SEX: F LOC: ABDIEL PHONE #: [phone] EXAM DATE: 06/25/2021 STATUS: REG ER FAX #: [phone] RAD #: D/C DT PAGE 2 Signed ReportHCG SERUM [id number] 11:16:00 Test Item Value Reference Range Interpretation Comments HCG SERUM QUAL (test code = HCGQL) NEGATIVE NEGATIVE COMPREHENSIVE METABOLIC [id number] 10:29:00 Test Item Value Reference Range Interpretation [...] newinformation regarding the potential i nterference ofEltrombopag ( a bone marrow stimulan t used to treatthrombocyt onmenia and aplastic anemia ) with specific assays on the Vitros 5600 of which Total Protein is one of thoseassays per formed in our lab.Interfe rence testing perform ed at Orth[facility] determined that Eltrombopag does interfere with Vitros Total Protein asfollowsEltrom bopag Interference fo r Vitros Product Total Protein:======= Eltrombopag Max Observed Av g. BiasConcentrati on Concentration Concentration== ==== 2.5 mg/dl 6.0 g/dl +0.41 +0.34 3.5 mg/dl 6.0 g /dl +0.50 +0.45 5 mg/dl 6 .0 g/dl +0.73 +0.65 2.5 mg/dl 8.0 g/dl +0.44 +0. 41 3.5 mg/dl 8.0 g/dl +0.55 +0.52 5 mg/dl 8.0 g/dl +0.86 +0.77 ALBUMIN (test 4.8 G/DL 3.5-5.0 N code = ALB) CALCIUM (test 9.9 MG/DL 8.4-10.2 N code = CA) BILIRUBIN TOTAL 0.8 MG/DL 0.2-1.3 N Eltrombopag Interference (test code = for Vitros Prod uct TBil, BILT) BuBc: Assa y Eltrombopag Hannah lyte/ Max Observed Avg. B ias Concentration C oncentration Concentration== ====TBil 7mg/dl TBil/ 1. 2mg/dl +0.23mg.dl +0.2 0mg/dlBuBc 3.5mg/dl Bu/0.8 mg/dl +0.25mg/dl +0.2 4mg/dlBuBc 7 mg/dl Bu/14.2mg /dl +0.38mg/dl +0.2 5mg/dlBuBc 5mg/dl Bc/0mg/d l +0.25mg/dl +0.15mg/dlBuBc 3.5mg/dl Bc/2.8mg/dl +0. 25mg/dl +0.23mg/dl SGOT/AST (test 24 UNITS/L 14-36 N code = AST) SGPT/ALT (test 20 UNITS/L 0-34 N code = ALT) ALKALINE 73 UNITS/L 38-126 N PHOSPHATASE (test code = ALKP) [id number] 10:29:00 Test Item Value Reference Range Interpretation Comments LIPASE (test code = LIP) 20 UNITS/L 23-300 L CBC W/AUTO [id number] 10:15:00 Test Item Value Reference Range Interpretation [...] (test code = 0.00 K/mm3 0.0-0.1 N NRBC#)"
[2022-08-31 19:02] LABS: Absolute Lymphocytes (CBC) 0.8 K/uL (0.7-4.9); Hematocrit 39.1 % (36.0-45.0); Lymphocytes % 8.1 % (15.3-44.8); MCV 88.8 fL (80-100); MPV 8.9 fL (7.6-11.3)
[2022-08-31 19:26] LABS: Specific Gravity 1.022 (1.005-1.030); Urine Bacteria <20 /HPF (<20); Urine Bilirubin NEGATIVE (Negative); Urine Blood Negative (Negative); Urine Clarity Clear (Clear); Urine Color Light-Yellow (Yellow); Urine Glucose 3+ (Negative); Urine Mucus Slight /HPF (None Seen); Urine Protein TRACE (Negative); Urine RBC <5 /HPF (None Seen); Urine Urobilinogen Normal (Normal); Urine pH 7.5 (5.0-7.0)
[2022-08-31 19:28] LABS: Albumin 4.4 g/dL (3.4-5.0); Bilirubin Total 0.9 mg/dL (0.2-1.0); Magnesium 1.9 mg/dL (1.6-2.4); Phosphorus 1.9 mg/dL (2.5-4.9); Potassium 3.7 mEq/L (3.5-5.1); Protein, Total 7.9 g/dL (6.4-8.2); Thyroid Stimulating Hormone 1.17 uIU/mL (0.358-3.740)
[2022-08-31 19:28] LABS: Specific Gravity 1.022 (1.005-1.030)
[2022-08-31] MEDS ORDERED: PROMETHAZINE INJ 25 MG/ML AMP ONE (19:34)
[2022-08-31] MEDS ORDERED: NA CHLORIDE 0.9% 1,000 ML ONE ×2 (19:34→20:25)
[2022-08-31] MEDS ORDERED: FAMOTIDINE 20 MG/2 ML VIAL IV ONE (19:34)
[2022-08-31] MEDS ORDERED: NA CHLORIDE 0.9% 250 ML ONE ×2 (19:34→22:07)
[2022-08-31] MEDS ORDERED: HALOPERIDOL LACT 5 MG/ML INJ ONE (19:35)
[2022-08-31 19:37] LABS: Barbiturates NEGATIVE (NEGATIVE); Benzodiazepines NEGATIVE (NEGATIVE); Cocaine NEGATIVE (NEGATIVE); METHAMPHETAM NEGATIVE (NEGATIVE); Methadone NEGATIVE (NEGATIVE); Opiates NEGATIVE (NEGATIVE); Phencyclidine NEGATIVE (NEGATIVE); THC Cannibis POSITIVE (NEGATIVE)
--- NOTE | 2022-08-31 19:56 | EDPHYS ---
Physician Documentation [facility] Name: Alpa Antonio Age: 26 yrs Sex: Female : 1995 Arrival Date: 08/31/2022 Time: 18:11 Bed 5 Private MD: Michael Santiago C ED Physician Dung Hagen HPI: 08/31 20:17 This 26 yrs old Female presents to ER via Ambulatory with complaints of Abdominal Pain, snw Nausea/Vomiting/Diarrhea. 20:17 The patient presents with abdominal pain that is diffuse. Onset: The symptoms/episode snw began/occurred 16 month(s) ago, and became persistent. The symptoms do not radiate. Associated signs and symptoms: Pertinent positives: nausea, vomiting, and diarrhea. The symptoms are described as crampy. Severity of pain: At its worst the pain was severe incapacitating in the emergency department the pain is unchanged. The patient has experienced similar episodes in the past, chronically. The patient has been recently seen by a physician: the patient's primary care provider, Dr. Santiago with similar presenting complaints, wants pt admitted for ACTH stim test. Historical: - Allergies: 18:40 Zofran; aa5 18:40 lactated Ringers; aa5 - PMHx: 18:40 abdominal migraines; aa5 - PSHx: 18:40 upper endoscopy; aa5 - Immunization history:: Adult Immunizations unknown. - Social history:: Smoking status: Patient denies any tobacco usage or history of. ROS: 20:13 Constitutional: Negative for fever, chills, and weight loss, Eyes: Negative for injury, snw pain, redness, and discharge, ENT: Negative for injury, pain, and discharge, Neck: Negative for injury, pain, and swelling, Cardiovascular: Negative for chest pain, palpitations, and edema, Respiratory: Negative for shortness of breath, cough, wheezing, and pleuritic chest pain, Back: Negative for injury and pain, : Negative for injury, bleeding, discharge, and swelling, MS/Extremity: Negative for injury and deformity, Skin: Negative for injury, rash, and discoloration, Neuro: Negative for headache, weakness, numbness, tingling, and seizure, Psych: Negative for depression, anxiety, suicide ideation, homicidal ideation, and hallucinations. 20:13 Abdomen/GI: Positive for abdominal pain, nausea, vomiting, and diarrhea, intermittently and recurrently x 16 months. Exam: 20:11 Constitutional: This is a well developed, well nourished patient who is awake, alert, snw and in no acute distress. Head/Face: Normocephalic, atraumatic. Eyes: Pupils equal round and reactive to light, extra-ocular motions intact. Lids and lashes normal. Conjunctiva and sclera are non-icteric and not injected. Cornea within normal limits. Periorbital areas with no swelling, redness, or edema. ENT: Nares patent. No nasal discharge, no septal abnormalities noted. Tympanic membranes are normal and external auditory canals are clear. Oropharynx with no redness, swelling, or masses, exudates, or evidence of obstruction, uvula midline. Mucous membranes moist. Neck: Trachea midline, no thyromegaly or masses palpated, and no cervical lymphadenopathy. Supple, full range of motion without nuchal rigidity, or vertebral point tenderness. No Meningismus. Chest/axilla: Normal chest wall appearance and motion. Nontender with no deformity. No lesions are appreciated. Cardiovascular: Regular rate and rhythm with a normal S1 and S2. No gallops, murmurs, or rubs. Normal PMI, no JVD. No pulse deficits. 20:11 Back: No spinal tenderness. No costovertebral tenderness. Full range of motion. Skin: Warm, dry with normal turgor. Normal color with no rashes, no lesions, and no evidence of cellulitis. MS/ Extremity: Pulses equal, no cyanosis. Neurovascular intact. Full, normal range of motion. Neuro: Awake and alert, GCS 15, oriented to person, place, time, and situation. Cranial nerves II-XII grossly intact. Motor strength 5/5 in all extremities. Sensory grossly intact. Cerebellar exam normal. Normal gait. 20:11 Cardiovascular: Rate: tachycardic, Rhythm: regular, Pulses: no pulse deficits are appreciated, Heart sounds: normal. 20:11 Abdomen/GI: Inspection: abdomen appears normal, Bowel sounds: active, all quadrants, Palpation: moderate abdominal tenderness, in all quadrants. 20:11 Psych: Behavior/mood is anxious, tearful. Vital Signs: 18:38 BP 147 / 101; Pulse 105; Resp 18 S; Temp 98.5(TE); Pulse Ox 98% on R/A; Weight 54.43 kg aa5 (R); Height 5 ft. 9 in. (R); 19:48 BP 124 / 110; Pulse 102; Resp 17 S; Pulse Ox 100% on R/A; lg3 20:57 BP 126 / 97; Pulse 113; Resp 18 S; Pulse Ox 100% on R/A; lg3 18:38 Body Mass Index 17.72 (54.43 kg, 175.26 cm) aa5 MDM: 18:42 Patient medically screened. snw 20:14 Differential diagnosis: bowel obstruction, cholecystitis, gastritis, gastroesophageal snw reflux disease, non-specific abd pain, pancreatitis, electrolyte derangement, cyclical vomiting syndrome, THC use. Data reviewed: vital signs, nurses notes, lab test result(s). Management of patient was discussed with the following: Dr. Santiago, pt to be admitted for ACTH stim test in am, Pt noted to have hypophosphatemia and dehydration in ED. Tx for pain with Haldol and pt is sleeping comfortably. Noted glycosuria without significant blood sugar elevation.. Counseling: I had a detailed discussion with the patient and/or guardian regarding: the historical points, exam findings, and any diagnostic results supporting the discharge/admit diagnosis, the presence of at least one elevated blood pressure reading (>120/80) during this emergency department visit, lab results, the need for further work-up and treatment in the hospital. Response to treatment: the patient's symptoms have markedly improved after treatment. Special discussion: Based on the history and exam findings, there is no indication for further emergent testing or inpatient evaluation. 08/31 18:46 Order name: CBC with Diff; Complete Time: 19:05 snw 08/31 18:46 Order name: CMP; Complete Time: 19:28 snw 08/31 18:46 Order name: Lipase; Complete Time: 19:28 snw 08/31 18:46 Order name: Test, Urine; Complete Time: 19:30 snw 08/31 18:46 Order name: Urinalysis w/ reflexes; Complete Time: 19:28 snw 08/31 18:46 Order name: UDS; Complete Time: 19:38 snw 08/31 18:46 Order name: Lactate w/ 2H reflex if indic.; Complete Time: 20:10 snw 08/31 18:46 Order name: TS; Complete Time: 21:00 snw 08/31 18:46 Order name: TSH; Complete Time: 19:28 snw 08/31 18:46 Order name: Phosphorus; Complete Time: 19:28 snw 08/31 18:46 Order name: Magnesium; Complete Time: 19:28 snw 08/31 20:31 Order name: Cortisol Stimulation Profile EDMS 08/31 20:31 Order name: Basic Metabolic Panel EDMS 08/31 20:31 Order name: Basic Metabolic Panel EDMS 08/31 20:31 Order name: CBC with Automated Diff EDMS 08/31 20:31 Order name: CBC with Automated Diff EDMS 08/31 20:31 Order name: Lipase EDMS 08/31 20:31 Order name: Lipase EDMS 08/31 20:31 Order name: Liver (Hepatic) Function EDMS 08/31 20:31 Order name: Liver (Hepatic) Function EDMS 08/31 20:31 Order name: Magnesium EDMS 08/31 20:31 Order name: Magnesium EDMS 08/31 20:31 Order name: Phosphorus EDMS 08/31 20:31 Order name: Phosphorus EDMS 08/31 20:31 Order name: NPO EDMS 08/31 18:46 Order name: IV Saline Lock; Complete Time: 18:51 snw 08/31 18:46 Order name: Labs collected and sent; Complete Time: 18:51 snw Administered Medications: 19:43 Drug: Haloperidol IVP 2.5 mg/50 mL 2.5 mg Route: IVP; Site: right antecubital; lg3 21:13 Follow up: Response: No adverse reaction; No change in condition; RASS: Alert and Calm lg3 (0) 19:43 Drug: NS 0.9% IV 1000 ml Route: IV; Rate: 1 bolus; Site: right antecubital; lg3 21:13 Follow up: IV Status: Completed infusion; IV Intake: 1000ml lg3 19:43 Drug: Famotidine IVP 20 mg Route: IVP; Site: right antecubital; lg3 21:13 Follow up: Response: No adverse reaction lg3 19:43 Drug: NS 0.9% IV 250 ml Route: IV; Rate: bolus; Site: right antecubital; lg3 21:14 Follow up: IV Status: Completed infusion; IV Intake: 250ml lg3 19:43 Drug: Promethazine IVP 25 mg Route: IVP; Site: right antecubital; lg3 20:56 Drug: Potassium Phosphate IV 15 mmol Route: IV; Rate: calculated rate; Site: right lg3 antecubital; 20:56 Drug: NS 0.9% IV 1000 ml Route: IV; Rate: 1 bolus; Site: right antecubital; lg3 22:06 Drug: NS 0.9% IV 250 ml Route: IV; Rate: bolus; Site: right antecubital; lg3 22:06 Drug: Ketorolac IVP 30 mg Route: IVP; Site: right antecubital; lg3 22:58 Not Given (Physician Discretion): Dicyclomine PO 20 mg PO once vc1 Disposition Summary: 08/31/22 19:56 Hospitalization Ordered Hospitalization Status: Inpatient Admission snw Provider: Michael Santiago Location: Telemetry/[facility] (Inpatient) snw Condition: Stable snw Problem: an acute exacerbation snw Symptoms: are unchanged snw Bed/Room Type: Standard snw Room Assignment: 229(08/31/22 22:05) cg Diagnosis - Cyclical vomiting, intractable snw - Hypophosphatemia snw Forms: - Medication Reconciliation Form snw - SBAR form snw Addendum: 09/04/2022 13:52 Co-signature as Attending Physician, Dung Hagen MD I agree with the assessment and c gonzalez plan of care. Signatures: Dispatcher [employer] Dung Smalls MD MD cha Waters, Shelly, DIAMOND SANDER-C DIAMOND SANDER-Csnw Yadira Sherman RN RN aa5 Miranda Little RN RN Olivia Owusu RN RN lg3 Courtney Esteban RN vc1 Corrections: (The following items were deleted from the chart) 08/31 22:05 19:56 snw cg
--- NOTE | 2022-08-31 19:56 | ER ---
Nurse's Notes [facility] Name: Alpa Antonio Age: 26 yrs Sex: Female : 1995 Arrival Date: 08/31/2022 Time: 18:11 Bed 5 Private MD: Michael Santiago C Diagnosis: Cyclical vomiting, intractable;Hypophosphatemia Presentation: 08/31 18:38 Chief complaint: Patient states: abd pain, nausea/vomiting/diarrhea that began 16 aa5 months ago. Pt's mother reports "Dr. Santiago wanted to admit her tomorrow but we couldn't wait". Pt's mother states "she just got released last week from [facility] but they couldn't find anything after all the testing". Coronavirus screen: diarrhea, vomiting. Ebola Screen: Patient denies travel to an Ebola-affected area in the 21 days before illness onset. Initial Sepsis Screen: Does the patient meet any 2 criteria? No. Patient's initial sepsis screen is negative. Does the patient have a suspected source of infection? No. Patient's initial sepsis screen is negative. Risk Assessment: Do you want to hurt yourself or someone else? Patient reports no desire to harm self or others. Onset of symptoms was August 2022. 18:38 Acuity: JUAN LUIS 3 aa5 18:38 Method Of Arrival: Ambulatory aa5 Triage Assessment: 18:45 General: Appears uncomfortable, Behavior is cooperative. Pain: Complains of pain in aa5 abdomen. Neuro: Level of Consciousness is awake, alert, obeys commands, Oriented to person, place, time, situation. Respiratory: Airway is patent Respiratory effort is even, unlabored, Respiratory pattern is regular, symmetrical. Derm: Skin is dry, Skin is pale, Skin temperature is warm. Historical: - Allergies: 18:40 Zofran; aa5 18:40 lactated Ringers; aa5 - PMHx: 18:40 abdominal migraines; aa5 - PSHx: 18:40 upper endoscopy; aa5 - Immunization history:: Adult Immunizations unknown. - Social history:: Smoking status: Patient denies any tobacco usage or history of. Screenin:48 [facility] ED Fall Risk Assessment (Adult) History of falling in the last 3 months, lg3 including since admission No falls in past 3 months (0 pts). Abuse screen: Denies threats or abuse. Denies injuries from another. Nutritional screening: No deficits noted. Tuberculosis screening: No symptoms or risk factors identified. Assessment: 19:08 Reassessment: Urine sent to lab . aa5 19:48 General: Appears in no apparent distress. uncomfortable, Behavior is cooperative, lg3 crying, fussy, quiet. Pain: Complains of pain in abdomen. Neuro: No deficits noted. Blanc Agitation-Sedation Scale (RASS): 0 - Alert and Calm Level of Consciousness is awake, alert, obeys commands, Oriented to person, place, time, situation. Cardiovascular: No deficits noted. Denies chest pain, shortness of breath, Capillary refill < 3 seconds Clubbing of nail beds is absent JVD is absent Patient's skin is warm and dry. Respiratory: No deficits noted. Airway is patent Respiratory effort is even, unlabored, Respiratory pattern is regular, symmetrical. GI: Abdomen is flat, non-distended, Bowel sounds present X 4 quads. Abd is soft X 4 quads Abdomen is tender to palpation X 4 quads. Reports lower abdominal pain, upper abdominal pain, anorexia, cramping, intolerance of fluids, intolerance of food, nausea, vomiting. : No deficits noted. No signs and/or symptoms were reported regarding the genitourinary system. EENT: No deficits noted. No signs and/or symptoms were reported regarding the EENT system. Derm: No signs and/or symptoms reported regarding the dermatologic system. Skin is intact, is healthy with good turgor, Skin is dry, Skin is pale, Skin temperature is warm. Musculoskeletal: No deficits noted. No signs and/or symptoms reported regarding the musculoskeletal system. Circulation, motion, and sensation intact. Range of motion: intact in all extremities. 20:56 Reassessment: Patient appears in no apparent distress at this time. No changes from lg3 previously documented assessment. Patient and/or family updated on plan of care and expected duration. Pain level reassessed. Patient is alert, oriented x 3, equal unlabored respirations, skin warm/dry/pink. 22:16 General: attempted to call report. nurse not available to take report due to just lg3 getting patient. left call back extention. will try again. . Vital Signs: 18:38 BP 147 / 101; Pulse 105; Resp 18 S; Temp 98.5(TE); Pulse Ox 98% on R/A; Weight 54.43 kg aa5 (R); Height 5 ft. 9 in. (R); 19:48 BP 124 / 110; Pulse 102; Resp 17 S; Pulse Ox 100% on R/A; lg3 20:57 BP 126 / 97; Pulse 113; Resp 18 S; Pulse Ox 100% on R/A; lg3 18:38 Body Mass Index 17.72 (54.43 kg, 175.26 cm) aa5 ED Course: 18:12 Patient arrived in ED. am2 18:13 Michael Santiago MD is Private Physician. am2 18:31 Juana [facility]C [facility]. snw 18:31 Dung Hagen MD is Attending Physician. snw 18:38 Arm band placed on. aa5 18:40 Triage completed. aa5 18:50 Initial lab(s) drawn, by al, sent to lab. Inserted saline lock: 20 gauge in right aa5 antecubital area, using aseptic technique. Blood collected. 19:24 Olivia Anne, RN is Primary Nurse. lg3 19:48 Patient has correct armband on for positive identification. Placed in gown. Bed in low lg3 position. Call light in reach. Side rails up X 1. Client placed on continuous cardiac and pulse oximetry monitoring. NIBP monitoring applied. rn intake on. Door closed. Noise minimized. Warm blanket given. Family accompanied patient. 19:54 Michael Santiago MD is Hospitalizing Provider. snw 22:11 No provider procedures requiring assistance completed. Patient admitted, IV remains in lg3 place. intact, No redness/swelling at site. Administered Medications: 19:43 Drug: Haloperidol IVP 2.5 mg/50 mL 2.5 mg Route: IVP; Site: right antecubital; lg3 21:13 Follow up: Response: No adverse reaction; No change in condition; RASS: Alert and Calm lg3 (0) 19:43 Drug: NS 0.9% IV 1000 ml Route: IV; Rate: 1 bolus; Site: right antecubital; lg3 21:13 Follow up: IV Status: Completed infusion; IV Intake: 1000ml lg3 19:43 Drug: Famotidine IVP 20 mg Route: IVP; Site: right antecubital; lg3 21:13 Follow up: Response: No adverse reaction lg3 19:43 Drug: NS 0.9% IV 250 ml Route: IV; Rate: bolus; Site: right antecubital; lg3 21:14 Follow up: IV Status: Completed infusion; IV Intake: 250ml lg3 19:43 Drug: Promethazine IVP 25 mg Route: IVP; Site: right antecubital; lg3 20:56 Drug: Potassium Phosphate IV 15 mmol Route: IV; Rate: calculated rate; Site: right lg3 antecubital; 20:56 Drug: NS 0.9% IV 1000 ml Route: IV; Rate: 1 bolus; Site: right antecubital; lg3 22:06 Drug: NS 0.9% IV 250 ml Route: IV; Rate: bolus; Site: right antecubital; lg3 22:06 Drug: Ketorolac IVP 30 mg Route: IVP; Site: right antecubital; lg3 22:58 Not Given (Physician Discretion): Dicyclomine PO 20 mg PO once vc1 Medication: 22:12 VIS not applicable for this client. lg3 Intake: 21:13 IV: 1000ml; Total: 1000ml. lg3 21:14 IV: 250ml; Total: 1250ml. lg3 Outcome: 19:56 Decision to Hospitalize by Provider. snw 22:11 Admitted to Med/surg accompanied by tech, via wheelchair, room 229, Report called to lg3 Betzaida 22:11 Condition: stable 22:11 Instructed on the need for admit, Demonstrated understanding of instructions. 22:58 Patient left the ED. vc1 Signatures: Juana Elias, RECTIFICATION PRINTER-C RECTIFICATION PRINTER-Csnw Yadira Sherman, RN RN aa5 Lynda Hernandez Lacie RN RN lg3 Courtney Esteban RN RN vc1 Corrections: (The following items were deleted from the chart) 18:52 18:43 Inserted saline lock: 20 gauge in right antecubital area, using aseptic aa5 technique. Blood collected. aa5 18:52 18:43 Initial lab(s) drawn, by al, sent to lab. aa5 aa5 18:53 18:38 Chief complaint: Patient states: abd pain, nausea/vomiting/diarrhea that began 16 aa5 months ago. Pt's mother reports "Dr. Santiago wanted to admit her tomorrow but we couldn't wait" aa5
[2022-08-31] MEDS ORDERED: DICYCLOMINE HCL 10 MG CAP PO PRN (20:20)
[2022-08-31] MEDS ORDERED: D50W 25 GM/50 ML SYRINGE IV PRN (20:20)
[2022-08-31] MEDS ORDERED: ACETAMINOPHEN 500 MG TAB PO PRN (20:20)
[2022-08-31] MEDS ORDERED: PROMETHAZINE HCL 50 MG/ML AMP IM PRN (20:20)
[2022-08-31] MEDS ORDERED: GLUCAGON 1 MG/VIAL IM PRN (20:20)
[2022-08-31] MEDS ORDERED: POTASSIUM PHOS IN 0.9 % NACL 15 MMOL/250 ML BAG IV ONE (20:21)
[2022-08-31] MEDS: INSULIN -REGULAR HUMAN 50 UNIT/0.5 ML ML SQ SCH (20:30)
[2022-08-31] MEDS ORDERED: KETOROLAC 30 MG/ML INJ ONE (22:07)
[2022-08-31] MEDS ORDERED: D10W 125 ML IV PRN (22:46)
[2022-09-01] MEDS: D5 0.45 NS 1,000 ML IV SCH ×5 (00:17→20:11)
[2022-09-01] MEDS: PROMETHAZINE INJ 25 MG/ML AMP IM PRN ×2 (00:55→08:46)
[2022-09-01 01:11] VITALS: BMI 17.7
[2022-09-01] MEDS: INSULIN -REGULAR HUMAN 50 UNIT/0.5 ML ML SQ SCH ×4 (02:30→20:30)
[2022-09-01] MEDS: MORPHINE 2 MG/ML SYR IV PRN ×4 (02:40→20:16)
[2022-09-01 03:09] LABS: Absolute Lymphocytes (CBC) 0.4 K/uL (0.7-4.9); Hematocrit 34.3 % (36.0-45.0); MCV 89.3 fL (80-100); MPV 8.9 fL (7.6-11.3); RBC Red Blood Cell Count 3.84 M/uL (3.86-4.86)
[2022-09-01 03:37] LABS: Albumin 3.8 g/dL (3.4-5.0); Bilirubin Direct 0.1 mg/dL (0-0.2); Bilirubin Total 0.6 mg/dL (0.2-1.0); Magnesium 1.9 mg/dL (1.6-2.4); Phosphorus 2.9 mg/dL (2.5-4.9); Potassium 3.8 mEq/L (3.5-5.1); Protein, Total 6.9 g/dL (6.4-8.2)
[2022-09-01 05:35] LABS: Blood Morphology Comment NOT SEEN (NOT SEEN); Platelet Estimate ADEQ
[2022-09-01] MEDS: PANTOPRAZOLE 40MG TABLET PO SCH (11:58)
[2022-09-01] MEDS: ESCITALOPRAM 20 MG TAB PO SCH (11:58)
[2022-09-01] MEDS: METOCLOPRAMIDE 10 MG/2mL INJ IV PRN (20:47)
[2022-09-02] MEDS: INSULIN -REGULAR HUMAN 50 UNIT/0.5 ML ML SQ SCH ×4 (02:09→20:30)
[2022-09-02] MEDS: MORPHINE 2 MG/ML SYR IV PRN ×2 (05:15→19:41)
[2022-09-02] MEDS: METOCLOPRAMIDE 10 MG/2mL INJ IV PRN ×3 (05:16→17:21)
[2022-09-02] MEDS: PANTOPRAZOLE 40MG TABLET PO SCH (05:54)
[2022-09-02] MEDS ORDERED: SODIUM CHLORIDE 0.9% 10ML INJ IV ONE (08:00)
[2022-09-02] MEDS ORDERED: COSYNTROPIN 0.25 MG VIAL IV ONE (08:00)
--- NOTE | 2022-09-02 08:05 | RAD REPORT ---
EXAM DESCRIPTION: US - Abdomen Exam Complete - 09/02/2022 5:42 am CLINICAL HISTORY: abd pain, nausea, vomiting COMPARISON: Abdomen Pelvis W Contrast dated 02/24/2022; Abdomen Pelvis W Contrast dated 07/31/2021 FINDINGS: No aortic aneurysm. Echogenic lesion in segment 4 of the liver corresponding with CT abnormality that likely represents f ocal fatty infiltration. The portal vein is patent. The IVC at the level of the liver is unremarkable. No ascites. The gallbladder is unremarkable. No pericholecystic fluid, wall thickening, or gallstones identified. No biliary ductal dilatation. The pancreas was grossly unremarkable. The right kidney measures 10.9 cm normal echotexture. No hydronephrosis. No suspicious masses. The left kidney measures 9.7 cm with a normal echotexture. No hydronephrosis. No suspicious masses. The spleen is unremarkable. IMPRESSION: 1. Negative for cholelithiasis or acute cholecystitis. 2. Echogenic lesion in the left hepatic lobe is almost certainly benign, possibly either a hemangioma or focal fatty infiltration. A 12 month follow-up ultrasound could be considered to ensure stability .
[2022-09-02 08:35] LABS: Absolute Lymphocytes (CBC) 0.7 K/uL (0.7-4.9); Hematocrit 32.4 % (36.0-45.0); Lymphocytes % 8.5 % (15.3-44.8); MCV 89.2 fL (80-100); MPV 8.7 fL (7.6-11.3); RBC Red Blood Cell Count 3.63 M/uL (3.86-4.86)
[2022-09-02 09:04] LABS: Potassium 3.4 mEq/L (3.5-5.1)
[2022-09-02] MEDS: ESCITALOPRAM 20 MG TAB PO SCH (10:47)
[2022-09-02] MEDS: D5 0.45 NS 1,000 ML IV SCH (10:55)
--- NOTE | 2022-09-02 13:46 | HP ---
Date of Admission: 08/31/2022 Chief Complaint: Abdominal pain, nausea, vomiting. History Of Present Illness: This is a 26-year-old young healthy female patient, who has undiagnosed problem for last almost a year to year and a half, where she has recurrent episodes of abdominal pain , nausea, vomiting, not able to keep any food or liquids down and over a period of time these episode s have gotten more intense and more frequent to the extent that patient had these episodes on a daily basis. She recently had 2 admissions at [facility] in [place] and during 1 of the ad mission, some of the blood work showed a vitamin D deficiency, folic acid deficiency, with normal vit jim B12 and her random serum cortisol level was high and she had received IV steroid for unknown ramón son few hours prior to this cortisol level. She never had any cortisol stimulation test done for afith gnosis of adrenal insufficiency and that is my primary concern. The patient denies any hematemesis. Denies any blood in stool. She has had at least 2 EGD in last year to 2 years and had multiple CAT scan of abdomen. EGD was unremarkable. With worsening symptoms, the patient's mother contacted me y esterday and she was advised to bring patient to our emergency room and after she was evaluated, she was admitted to the hospital. During nighttime, nurse contacted me because of her abdominal pain and morphine was ordered for her along with Phenergan for nausea. This morning when I saw her, the david ent was sleeping. She woke up, talked to me briefly, and went back to sleep and her mother was prese nt with her at bedside. Denies any fever, chills. Allergies: TO ZOFRAN, CAUSING RASH. Past Medical History: Significant for gastroesophageal reflux disease, anxiety, and undiagnosed prob unique with abdominal pain, nausea, vomiting, and at some point, neurologist that she has saw, thought t hat she had abdominal migraine and director of radio services thought that she had cyclic vomiting syndrome. Unfortunately, so far she has seen multiple director of radio services and neurologist and has not been able to get any relief. Past Surgical History: Negative. Family History: Mother has hypothyroidism and migraine. The patient's brother had similar complaint s with abdominal pain, nausea, and vomiting between age 18 and 24 years and he was diagnosed also has having cyclic vomiting syndrome and after age 24 years, his problem has resolved. Paternal grandfat her had prostate cancer and diabetes. Maternal grandmother, ovarian cancer. Social History: Negative for smoking and alcohol use, but positive for marijuana use and the patient 's mother thought that the patient had quit using marijuana as of July 2022, but her urine toxicolog y screen done during this hospital admission when she came to ER yesterday was positive for THC. Review of Systems: GI: As mentioned above. Constitutional: Weight loss. All other systems reviewed and negative. Physical Examination: VITAL SIGNS: Temperature this morning 98.9, pulse 104, respiratory rate 15, blood pressure 143/86, ox ygen saturation 98% on room air. Height 5 feet 9 inches, weight 120 pounds. It is important to note that the patient has lost almost 100 pounds over last 16 months as reported by patient and patient's mother. General: Awake, alert, oriented, not in distress. HEENT: Head atraumatic, normocephalic. Conjunctivae nonerythematous. Sclerae white. Mouth, no thr ush or edema noted. Ears/Nose, no mass, lesion, discharge noted. Neck: Supple. No JVD, lymph nodes, bruit, thyromegaly noted. Lungs: Bilateral good equal air entry. Clear to auscultation. No rhonchi. No rales. Heart: Normal heart sounds, no murmur or gallop. Abdomen: Soft, bowel sounds normal. No guarding, rigidity, tenderness, mass, hepatosplenomegaly, dis tention, or bruit noted. Extremities: No leg edema. No calf tenderness. Skin: No rash, ulcer, cellulitis. Lymphatics: No lymph node enlargement in neck, supraclavicular, infraclavicular region. Neuro: No focal neurological deficit. Chest: Unremarkable. External Genitalia: Deferred. Rectal: Deferred. Laboratory Data: Yesterday; white count 9.7, hemoglobin 13.4, platelets 273. Today, white count 12. 2, hemoglobin 11.7, platelets 211. Yesterday; sodium 136, potassium 3.7, chloride 103, bicarb 22, BU N 16, creatinine 1, glucose 153. Initial lactic acid 2.4, phosphorus 1.9. Liver function tests unre markable. Lipase 18. TSH 1.17. This morning; sodium 134, potassium 3.8, chloride 106, bicarb 22, B UN 12, creatinine 0.66, glucose 139, phosphorus 2.9. Liver function tests unremarkable. Repeat lact ic acid level was 0.8. Urinalysis was 4+ ketones, 3+ glucose, trace protein. Urine test n egative. Urine toxicology screen positive for THC. Impression: 1.Abdominal pain, generalized. 2.Nausea with vomiting. 3.Anxiety. 4.Gastroesophageal reflux disease. 5.Rule out adrenal insufficiency. Folic acid deficiency and vitamin D deficiency. Medications: At home patient was taking escitalopram 10 mg daily and pantoprazole 40 mg daily, folic acid 1 mg daily, and vitamin D 1000 unit daily. Plan: We will go ahead and admit patient to hospital for further evaluation and management of this p vel. Patient is appropriate for inpatient and is expected to spend 2 midnights in hospital. IV f luid will be continued. We will go ahead and give pain medication and nausea medication per order. I will order abdominal ultrasound tomorrow morning. The patient had a CAT scan of abdomen done in of last year and July of last year, results reviewed. There is no reason to do another CAT sc an at this point, but we will definitely do abdominal ultrasound to look at liver and especially gall bladder. I will also order HIDA scan tomorrow to look at the gallbladder function. We definitely ne ed to rule out any underlying gallbladder pathology. Tomorrow morning, we will do cortisol stimulati on test along with aldosterone and renin level. Depending on these test results, further plan of marilu atment will be provided. SCD was ordered for DVT prophylaxis. Details were discussed with the patie nt and patient's mother and I will see her tomorrow morning for followup. It was also advised for arthur downey to quit using marijuana completely as it can contribute to nausea and vomiting problem. The arthur downey's mother states that she was told in the past by other physicians and she was surprised to hear about positive urine toxicology screen test and she will meme k to her daughter as well. LORI/MODL Voice ID: [id number]
--- NOTE | 2022-09-02 15:10 | RAD REPORT ---
EXAM DESCRIPTION: NM - Hepatobiliary System Imagin - 09/02/2022 3:00 pm CLINICAL HISTORY: abd pain, nausea, vomiting COMPARISON: No comparisons TECHNIQUE: The patient was administered 5.9 mCi Tc99m Choletec. Imaging of the right upper quadrant was performed initially. However, the patient then refused to continue the study. FINDINGS: The liver appears normal in size. Faint gallbladder activity is seen. Further detail is no t possible.
[2022-09-02] MEDS ORDERED: HALOPERIDOL LACT 5 MG/ML INJ IV ONE (15:15)
[2022-09-02] MEDS: LORazepam 2 MG/ML VIAL IV PRN (21:01)
[2022-09-02] MEDS: PROMETHAZINE INJ 25 MG/ML AMP IV PRN (22:30)
--- NOTE | 2022-09-02 23:31 | PN ---
Date of Progress Note: 09/02/2022 Subjective: Patient was seen this morning for followup. The patient's mother was present with her a t bedside. She was sitting upright in bed. Continues to have abdominal pain, nausea, and vomiting. Objective: Vital Signs: Reviewed. HEENT: Unremarkable. Lungs: Clear to auscultation. Heart: Sounds normal. Abdomen: Soft. Bowel sounds normal. No guarding, rigidity, tenderness, distention. Extremities: No leg edema. Laboratory Data: CBC and chemistry were unremarkable this morning, and abdominal ultrasound showed a ramón in the liver, which appears unchanged from before and likely benign either due to fatty infiltrat ion or hemangioma. The patient's mother has brought multiple prior imaging studies going back to and all those reports have mentioned about this area of abnormality in the liver, so obviously this is not a new finding. Cortisol stimulation test was done today and that showed normal cortisol leve l. We also ordered a HIDA scan today and the restaurant maintenance technician informed me that the patient and the patient 's mother requested this to be terminated before PCK injection, so the test was not completed today, so we do not have any answer about any biliary dyskinesia, but at least on basis of ultrasound, there is no evidence of cholecystitis and no evidence of gallstones. The patient and patient's mother req uested Haldol instead of morphine. She did receive 1 dose of Haldol in the emergency room and respon ded well so I did order 1 mg Haldol IV this afternoon. I will see her tomorrow morning for followup. LORI/MODL Voice ID: [id number] Report ID: [id number]
[2022-09-03] MEDS: INSULIN -REGULAR HUMAN 50 UNIT/0.5 ML ML SQ SCH (02:30)
[2022-09-03] MEDS: PROMETHAZINE INJ 25 MG/ML AMP IV PRN (02:42)
[2022-09-03] MEDS: MORPHINE 2 MG/ML SYR IV PRN (03:31)
[2022-09-03] MEDS: PANTOPRAZOLE 40MG TABLET PO SCH (06:30)
[2022-09-03] MEDS: LORazepam 2 MG/ML VIAL IV PRN (06:32)
[2022-09-03] MEDS ORDERED: PREGABALIN 50 MG CAP PO ONE (08:15)
[2022-09-03] MEDS ORDERED: METOCLOPRAMIDE 10MG/10ML UCUP PO ONE (08:30)
[2022-09-03 09:36] VITALS: BP 116/68; TEMP 98.6
[2022-09-03] MEDS: ESCITALOPRAM 20 MG TAB PO SCH (09:48)
[2022-09-03 14:11] VITALS: O2SAT 99
--- NOTE | 2022-09-04 03:16 | DS ---
Date of Discharge: 09/03/2022 Patient was seen this morning for followup. Physical Examination: HEENT: Unremarkable. Lungs: Clear to auscultation. Heart: Sounds normal. Abdomen: Soft. Bowel sounds normal. No guarding, rigidity, tenderness, distention. Extremities: No leg edema. Discharge Medications: Continue all prior home medications. Followup: Follow up with specialist in [place] as per scheduled appointment tomorrow. Final Diagnoses: 1.Cyclic vomiting syndrome. 2.Abdominal pain, generalized, secondary to above. 3.Nausea with vomiting secondary to above. 4.Anxiety. 5.Folic acid deficiency. 6.Vitamin D deficiency. Hospital Course: This is a 26-year-old very pleasant female patient who saw me for the initial offic e visit last week on . The patient has a longstanding history almost 16 to 18 months' histor y of recurrent abdominal pain, nausea, vomiting, and she has been to multiple physicians for this inc luding neurologist, Gastroenterology, had at least couple of EGD done multiple CAT scan and blood wor k done over period of last year and a half. Her EGD was unremarkable. Abdominal ultrasound and CAT scan in the past was unremarkable except about 3.5 cm area in the liver, which could be either siobhan ioma or benign lesion, has not changed in last year or so. She had 2 recent hospital admission at [facility] last month and with worsening symptoms, she was brought into our emergency ro om. After she was evaluated, she was admitted to the hospital. Her random serum cortisol level at [facility] was low and she had received IV steroid about 6 hours prior to this random c ortisol level was done. Our concern was, if we are dealing with adrenal insufficiency, so we did ord er cortisol stimulation test at our hospital and that came back normal. I also ordered abdominal ult rasound to rule out any gallbladder pathology like gallstones and her gallbladder was normal without any gallstones. Area of abnormality noted in the liver, which appears to be either benign lesion or hemangioma, but no significant change from before. I also ordered a HIDA scan to rule out any biliar y dyskinesia and half way through the test, patient decided not to continue testing anymore because o f her pain and the patient and her mother both decided to discontinue test, so she was brought back u p to her room from Radiology Department, so we did not have any information on HIDA scan report agusto se she did not complete the test. She continues to have abdominal pain, nausea, vomiting, not able t o keep anything down. Mother says that in the past she was told that she might have gluten sensitivi ty, so she was advised to avoid gluten, but that really has not helped to alleviate any of her sympto ms, so today, I talked to her and advised her that she should try a can of Ensure and if she tolerate s that by drinking 1 or 2 sips at a time and see if that helps with nutritional support, then we migh t be able to discharge her to go home after she had a can of Ensure. Subsequently, she had episode o f vomiting. We do not have specialist that the patient needs and she will be better served at [facility] and the patient's mother requested for us to transfer her to [place] and she was at [facility], so I did inform the charge nurse to go ahead and initiate the process to t ransfer her to [facility] to the same facility where she was recently and within short time after that nurse contacted and informed me that the patient did not want to go to [place] and s he wanted to be discharged to go home, so she was released to go home with above-mentioned medication s and instructions. I have advised her to consider to go to [facility] and she has started communic ation with [facility]. She has appointment to see income tax investigator next week in [place] and she was encouraged to keep that appointment. I have also advised the patient's mother that she should eveliai ashlie see psychiatrist and we have 2 psychiatrists locally here between [place] and [place], and she informed me that she will look into insurance to see who is in her insurance panel and she will call to schedule appointment. LORI/MODL Voice ID: [id number] Report ID: [id number]
== END 2022-09-03 15:21 | disposition home or self-care (01) | DRG 395 ==
LOC: ER 18:11 → 2ND 22:40
PROVIDERS: ADMIT Internal Medicine; ATTEND Internal Medicine
DX: R11.15 Cyclical vomiting syndrome unrelated to migraine (principal); K21.9 Gastro-esophageal reflux disease without esophagitis; F41.9 Anxiety disorder, unspecified; E55.9 Vitamin D deficiency, unspecified; E53.8 Deficiency of other specified B group vitamins; Z88.8 Allergy status to other drugs, medicaments and biological substances
CPT/HCPCS: 36415; 76700; 78226; 80048; 80053; 80076; 80307; 81001; 81025; 82024; 82088; 82533; 82947; 83605; 83690; 83735; 84100; 84244; 84443; 85025; 86850; 86900; 86901; 96365; 96366; 96375; 99285; A4216; A9537; J0834; J1630; J2270; J2550; J2765; J7030; J7050; J7799